=== PATIENT | female | born 1980 | race Caucasian/White ===

== ENCOUNTER 2021-07-10 09:20 | Emergency (ER) | payer MEDICAID, SELFPAY ==
[2021-07-10] VITALS (54 sets, daily range): BP systolic 111–144; BP diastolic 73–91; PULSE 81–107; RESP 13–28; TEMP 36.2–36.4; O2SAT 95–100
--- NOTE | 2021-07-10 09:15 | RT.EKG_ITS ---
APPROVED REPORT Exam: Resting ECG Reason for Exam: chest and throat burning Patient Location: E HR:92 bpm ECG Measurements Heart Rate 92 AXIS NM 157 P 55 QRSd 91 QRS 13 QT 347 T 19 QTc 430 Conclusion Sinus rhythm...normal P axis, V-rate 60- 99 sinus rhythm at 92, normal axis, no acute ischemic changes, no STEMI, nondiagnostic EKG
--- OUTSIDE RECORDS SUMMARY | 2021-07-10 09:30 | XMS_ITS | Encounter Summary ---
:1980 Author Care Team Providers Name Role Phone Faustino Castrejon Primary Care Provider [phone] Yuri Alexander General Surgeon [phone] Reason for Visit Right edema 41 y/o female with multiple complaints Assessment and Plan 1. Swelling of ankle joint mild non pitting edema, no tra marlo, no need for imaging, start wearing knee high 15 mmHg compression socks 2. Flushing occurs at time when her menses was expected to happen prior to hysterectomy, does have one ovary, normal CBC, CMP & TSH this year, no need for further testing, pt reassured by normal labs pt has mild tachycardia (103) and mildly elevated temperature, (99.6F) will monitor, may be developing a mild URI 3. Anesthesia of skin left arm felt like it was bein g squeezed for several minutes but has resolved, first episode, likely related to thoracic outlet syndrome, f/u with PT as pt is already established there. Discussion Note: None recorded.Patient educational handouts: No information available. Plan of Care Reminders Provider Appointments Hme 20 on or around Yuri Drake MD 06/10/2022 Lab None ? ? recorded. Referral None ? ? recorded. Procedures None ? ? recorded. Surgeries None ? ? recorded. Imaging None ? ? recorded. Medications Name Start Date ? ? Carafate 1 gram tablet ? Take 1 tablet 4 times a day by oral route. citalopram 20 mg tablet ? TAKE ONE TABLET BY MOUTH EVERY DAY cyclobenzaprine 10 mg tablet ? .5 to 1 tab q 8 hours prn neck spasms and pain. fluticasone propionate 50 mcg/actuation nasal spray,mcclain spension ? INSTILL ONE SPRAY IN EACH NOSTRIL DAILY ondansetron 4 mg disintegrating tablet ? DISSOLVE ONE TABLET ON TONGUE EVERY 4 TO 6 HOURS N EEDED FOR NAUSEA Protonix 40 mg tablet,delayed release ? Take 1 tablet twice a day by oral route. Saline Nasal 0.65 % spray aerosol ? 2 sprays each nostril BID & PRN Topamax 25 mg tablet ? Take 1 tablet twice a day by oral route. Medications Administered None recorded. Vitals Height Weight BMI Blood Pressure 5 ft 7 in 206 lbs 16 oz 32.4 kg/m2 120/78 mm[Hg] Results Lab Results None recorded. Allergies Code Code System Name Reaction Severity Onset 3292 RxNorm Chlorhexidine Rash Mild ? 2582 RxNorm Clindamycin ? ? ? 3361 RxNorm Dicyclomine Other ? ? Grass Pollen ? ? ? 910660 RxNorm House Dust ? ? ? 375674 RxNorm Peanut ? ? ? Tomato ? ? ? 65829 RxNorm Zoloft ? ? ? Problems Name Status Onset Date Source ? Uterine Prolapse Active 12/31/2019 ? Dysmenorrhea Active 12/31/2019 ? Allergic Rhinitis Active 07/25/2020 ? Iron Deficiency Active 10/18/2020 ? Goiter Active ? History Non-toxic Multinodular Goiter Active ? Hi story Overweight Active ? History Gastroesophageal Reflux Disease Active ? History Constipation Active ? History Midline Cystocele Active ? 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 History Muscle Weakness Active ? History Lack of Energy Active ? History Tremor Active ? History Anesthesia of Skin Active ? History Dysuria Active ? History History of Gestational Diabetes Active ? History Mellitus Inflammatory Dermatosis Active ? History Pain in Right Hip Joint Active ? History Breast Lump Active ? History Procedures Date Name Performed by ? 04/27/2020 [facility] W/t/o 250 g or Less Information not available Notes: [facility], [facility], [facility], [facility] 12/31/2018 EGD/Endoscopy Information not avai lable Notes: mild gastritis, mi ld duodenitis, sm hiatal hernia, barretts changes at [facility] 12/15/2018 Cholecystectomy, Laparoscopic (Surg) Inf ormation not available 09/10/2014 Tubal Ligation Information not avai lable ? Breast Biopsy Information not avai lable Notes: X 3 Vaccine List Vaccine Type Tdap 11/11/2012 Notes: states she had her Covid vaccine Social History Tobacco Smoking Status Never Smoker What is your level of alcohol Occasional consumption? Did the fall result in an N injury? Are you currently employed? 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 N Education [employer] Graduate Do you or have you ever used Never used smokeless tobacco smokeless tobacco? What is your code status? 0 What was the date of your 03/09/2021 most recent tobacco screening? Do you or have you ever used Never used electronic e-cigarettes or vape? cigarettes Do you have an advanced N directive? Do you feel safe at home? 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 Functional Status Unknown. Past Encounters 06/29/2021 Swelling of Ankle Joint; Flushing; Anest hesia of Skin Ciara Jaffe, GREGORIO: [address], [place] [address], Ph. History of Present Illness ? Podiatry Ankle Reported By: Patient Notes: has a spot on inner right an kle that has a patch of fluid never goes away, but does get worse thr oughout the day. denies trauma<div>
</div><div>yi s lost 2 lbs since February 2021 to June 2021
<div>
</div><div> ROS denies fevers, chest pain, palpiations</div></div> Note: 41 year old patient here to see provider for multiple concerns.<div>
</div><div> Her right ankle is swollen. Her hair is coming out in clumps. She is very sweaty. She has been on a low carb diet and is still not losing weight. She feels that she is on her feet a lot andfeels like she should have lost 10 lbs by now. She was supposed to follow up with Dr. Castrejon, but wanted to be seen today. She has needles and pins in skin of arms, feels like hot acupuncture needles.She feels like she has a rock in her throat. She does have GERD. Feels like there is a lump when she swallows. </div><div>
</div><div>multiple vague complants, burning,tingling, at time of menses, though s/p hysterectomy, has one ovary</div> Review of Systems None recorded. Physical Exam ? Brief PE Reported By: Patient General: General Appearance: healthy- appearing, well-nourished, well-developed. Level of Dis tress: NAD Musculoskeletal: Joints, Bones, and Muscles: ; bilateral ankles with mild edema at lateral maoleoli, non pittin g, FROM with no pain Psychiatric: Affect appropriate; calm, co operative
--- OUTSIDE RECORDS SUMMARY | 2021-07-10 09:30 | XMS_ITS ---
:1980 Author Care Team Providers Name Role Phone JANETH CAVAZOS General Surgeon [phone] ADAM MIRAMONTES DO Primary Care Provider [phone] Allergies Code Code System Name Reaction Severity Status Onset 2358 RxNorm Chlorhexidine Rash Mild Active ? 2582 RxNorm Clindamycin ? ? Active ? 3361 RxNorm Dicyclomine Other ? Active ? Grass Pollen ? ? Active ? 295624 RxNorm House Dust ? ? Active ? 956773 RxNorm Peanut ? ? Active ? Tomato ? ? Active ? 50441 RxNorm Zoloft ? ? Active ? Medications Name Status Start Date Stop Date ? ? amoxicillin 400 mg/5 mL oral suspension Completed 05/22/20 16 06/01/2016 10 Milliliter Milliliter: bid - twice daily amoxicillin 875 mg-potassium clavulanate 125 mg tablet Completed ? 03/09/2021 TAKE ONE TABLET BY MOUTH EVERY 12 HOURS FOR 10 DAYS azithromycin 250 mg tablet Active ? Not a vailable TAKE TWO TABLETS BY MOUTH AT ONCE ON FIRST DAY THEN TAKE ONE DAILY THEREAFTER Carafate 1 gram tablet Active ? Not avail able Take 1 tablet 4 times a day by oral route. cetirizine 1 mg/mL oral solution Active ? Not available TAKE 10ML BY MOUTH EVERY DAY cetirizine 10 mg tablet Completed ? 09/28/20 20 TAKE ONE TABLET BY MOUTH EVERY DAY citalopram 10 mg tablet Completed ? 03/09/20 21 TAKE ONE TABLET BY MOUTH EVERY DAY citalopram 20 mg tablet Active ? Not avai lable TAKE ONE TABLET BY MOUTH EVERY DAY Claritin 5 mg/5 mL oral solution Completed ? 06/02/2020 Take 10 mL every day by oral route as needed. clobetasol 0.05 % topical cream Completed 01/24/2017 01/24/2017 1 (one) Cream: two times daily cyclobenzaprine 10 mg tablet Active ? Not available .5 to 1 tab q 8 hours prn neck spasms and pain. dicyclomine 20 mg tablet Completed ? 019 Diflucan 150 mg tablet Completed 05/30/2017 7 1 (one) Tablet: qd - daily Heartburn Relief (famotidine) 10 mg tablet Active ? Not available TAKE ONE TABLET BY MOUTH AT BEDTIME famotidine 20 mg tablet Completed ? 09/28/20 20 TAKE1/2 TABLET BY MOUTH TWO TIMES A DAY Fleet Glycerin (Adult) rectal suppository Completed 201610/02/2017 1-2 Suppository: daily fluticasone propionate 50 mcg/actuation nasal spray,suspension A ctive ? Not available INSTILL ONE SPRAY IN EACH NOSTRIL DAILY hydrocodone 5 mg-acetaminophen Completed ? 0 12/03/2019 325 mg tablet hydromorphone 2 mg tablet Completed ? 2018 hydroxyzine HCl 25 mg tablet Completed 05/23/2015 1 (one) Tablet: every six hours, as needed lorazepam 0.5 mg tablet Completed ? 12/03/19 lorazepam 1 mg tablet Completed ? 06/25/2019 metoprolol succinate ER 25 mg tablet,extended release 24 hr Acti ve ? Not available TAKE ONE TABLET BY MOUTH EVERY DAY metronidazole 375 mg capsule Completed 07/03/2016 1 (one) Capsule: qid - four times a day Miralax 17 gram oral powder packet Completed 02/26/2017 10/02/2017 1 (one) Capful Capful: daily mometasone 50 mcg/actuation Completed ? 07/13 nasal spray omeprazole 20 mg capsule,delayed release Unknown ? Not available one capsule two times daily omeprazole 40 mg capsule,delayed release Completed ? 09/28/2020 TAKE ONE CAPSULE BY MOUTH EVERY MORNING ondansetron 4 mg disintegrating tablet Active ? Not available DISSOLVE ONE TABLET ON TONGUE EVERY 4 TO 6 HOURS NEEDED FOR NAUSEA oxycodone-acetaminophen 5 Completed ? 2018 mg-325 mg tablet pantoprazole 20 mg tablet,delayed release Completed ? 09/28/2020 Take 1 tablet every day by oral route. polyethylene glycol 3350 17 Completed ? 11/12 gram/dose oral powder prochlorperazine maleate 10 mg Completed ? 0 06/16/2019 tablet Protonix 40 mg tablet,delayed release Active ? Not available Take 1 tablet twice a day by oral route. ranitidine 300 mg tablet Completed ? 019 Saline Nasal 0.65 % spray aerosol Active ? Not available 2 sprays each nostril BID & PRN Simpesse 0.15 mg-30 mcg Completed ? 12/03/19 20 (84)/10 mcg(7) tablets,3 month dose pack sulfamethoxazole 800 Completed ? 12/03/2019 mg-trimethoprim 160 mg tablet terconazole 0.8 % vaginal cream Completed 05/30/2017 10/02/2017 1 (one) Application: vaginally x 3 nights Topamax 25 mg tablet Active ? Not availab le Take 1 tablet twice a day by oral route. Tri-Linyah (28) 0.18 Completed ? 12/03/2019 mg(7)/0.215 mg(7)/0.25 mg(7)-35 mcg tablet Zofran 4 mg tablet Completed ? 09/28/2020 Take 1 tablet every 6 hours by oral route as needed. Problems Name Status Onset Date Source ? Uterine Prolapse Active 12/31/2019 ? Dysmenorrhea Active 12/31/2019 ? Allergic Rhinitis Active 07/25/2020 ? Iron Deficiency Active 10/18/2020 ? Goiter Active ? History Non-toxic Multinodular Goiter Active ? Hi story Overweight Active ? History Disorder of Upper Respiratory System Unknown ? History Gastroesophageal Reflux Disease Active ? History Constipation Active ? History Midline Cystocele Active ? 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 History Arthralgia of the Ankle And/or Foot Unknown ? History Backache Unknown ? History Muscle Weakness Active ? History Lack of Energy Active ? History Tremor Active ? History Anesthesia of Skin Active ? History Dysuria Active ? History Abdominal Pain Unknown ? History History of Gestational Diabetes Active ? History Mellitus Screening Mammography Unknown ? History Inflammatory Dermatosis Active ? History SNOMED CT Concept Unknown ? History Pain in Right Hip Joint Active ? History Clinical Finding Unknown ? History Emotional State Finding Unknown ? History Breast Lump Active ? History Eve Infection of Genital Region Unknown ? History Procedure by Method Unknown ? History Procedures Date Name Performed by ? 04/27/2020 Tlh W/t/o 250 g or Less Information not available Notes: TLH, LSO, RS, USVVS 12/31/2018 EGD/Endoscopy Information not avai lable Notes: mild gastritis, mi ld duodenitis, sm hiatal hernia, barretts changes at [facility] 12/15/2018 Cholecystectomy, Laparoscopic Informatio n not available (Surg) 09/10/2014 Tubal Ligation Information not avai lable ? Breast Biopsy Information not avai lable Notes: X 3 11/24/2018 US, Abdomen, Limited [facility] (Internal) [address] [place] [address] (Work Place) 11/26/2018 NM, Hepatobiliary Scan, W/ CCK [facility] Rad[facility] (Internal) [address] [place] [address] (Work Place) 12/22/2018 US, Abdomen, Limited [facility] (Internal) [address] [place] [address] (Work Place) 04/30/2019 MAMMO, Diagnostic, Tomosynthesis, [facility] Radiology (Internal) Unilateral [address] [place] [address] (Work Place) 04/30/2019 US, Breast, Unilateral, Limited [facility] Radiology (Internal) [address] [place] [address] (Work Place) 05/01/2019 MAMMO, Diagnostic, Tomosynthesis, [facility]iology (Internal) Bilateral [address] [place] [address] (Work Place) 06/16/2019 MRI, Brain, W/o Contrast [facility] Rad[facility] (Internal) [address] [place] [address] (Work Place) 06/17/2019 MRI, Brain, W/wo Contrast [facility] (Internal) [address] [place] [address] (Work Place) 08/10/2019 US, Pelvis, Transabdominal + [facility] (Internal) Transvaginal [address] [place] [address] (Work Place) 06/02/2020 MAMMO, Screening, Tomosynthesis, [facility] (Internal) Bilateral [address] [place] [address] (Work Place) 06/02/2020 XR, Shoulder, 2 or More View [facility] (Internal) [address] [place] [address] (Work Place) 06/15/2020 XR, Shoulder, 2 or More View [facility] (Internal) [address] [place], [place] [id number] (Work Place) 07/28/2020 US, Breast [facility] (Internal) [address] [place] [address] (Work Place) 11/15/2020 Holter Monitor [facility] Cardio pulmonary [address] [place] [address] (Work Place) Results Lab Results Date Name Specimen Result Interpretation Description Value Range Status Address ? 03/23/2021 CBC W/ BLD ? Wbc 7.4 10*3/uL 5.0-10.0 Final [place] Auto Diff 10*3/uL [facility] L ab (Internal) : [address] t ? ? BLD ? Rbc 4.78 10*6/uL 4.10-5.30 Final N orth 10*6/uL [facility] L ab (Internal) : [address] t ? ? BLD ? Hgb 13.1 g/dL 12.0-16.0 Final Nort h g/dL [facility] L ab (Internal) : [address] t ? ? BLD ? Hct 41.4 % 37.0-47.0 % Final [facility] L ab (Internal) : [address] t ? ? BLD ? Mcv 86.6 fL 80.0-96.0 Final [facility] L ab (Internal) : [address] t ? ? BLD ? Mch 27.4 pg 26.0-32.0 Final [facility] L ab (Internal) : [address] t ? ? BLD ? Mchc 31.6 g/dL 31.0-35.0 Final Nort h g/dL [facility] L ab (Internal) : [address] t ? ? BLD ? Rdw 14.1 % 11.5-14.5 % Final [facility] L ab (Internal) : [address] ? ? BLD ? Plt 265 10*3/uL 130-450 Final Nort h 10*3/uL [facility] L ab (Internal) : [address] ? ? BLD ? Anc 4.78 10*3/uL ? Final Nort [facility] L ab (Internal) : [address] [place] ? ? BLD ? Nlr 2.63 0.00-3.20 Final [facility] L ab (Internal) : [address] , [place] ? ? BLD ? Neutro 64.7 % 40.0-75.0 % Final Nort [facility] L ab (Internal) : [address] ? ? BLD ? Lymph 24.6 % 20.0-50.0 % Final [facility] L ab (Internal) : [address] t ? ? BLD ? [place] 7.3 % 2.0-10.0 % Final [facility] L ab (Internal) : [address] ? ? BLD ? Eos 2.3 % 1.0-6.0 % Final [facility] L ab (Internal) : [address] ? ? BLD ? Baso 0.8 % 0.0-1.0 % Final [facility] L ab (Internal) : [address] t ? ? BLD ? Ig 0.3 % 0.0-0.9 % Final [facility] L ab (Internal) : [address] t 03/23/2021 BMP, S ? g/r 96 mg/dL 74-106 Final Nort h Serum or mg/dL [facility] L [facility] (Internal) : [address] t ? ? S ? Bun 15 mg/dL 7-17 mg/dL Final Nort h [facility] L ab (Internal) : [address] ? ? S ? Crea 0.60 mg/dL 0.52-1.04 Final Nor th mg/dL [facility] L ab (Internal) : [address] ? ? S ? Ca 9.6 mg/dL 8.4-10.2 Final [place] mg/dL [facility] L ab (Internal) : [address] t ? ? S ? Na 141 mmol/L 137-145 Final [place] mmol/L [facility] L ab (Internal) : [address] t ? ? S ? K 3.8 mmol/L 3.5-5.1 Final [place] mmol/L [facility] L ab (Internal) : [address] t ? ? S ? Cl 105 mmol/L 98-107 Final [place] mmol/L [facility] L ab (Internal) : [address] t ? ? S ? Tco2 24.0 mmol/L 22.0-30.0 Final No rth mmol/L [facility] L ab (Internal) : [address] 03/23/2021 Troponin S ? Trop <0.06 NG/mL 0.00-0.06 Fin al [place] I, Serum NG/mL [facility] or [facility] Lab (Internal) : [address] 11/15/2020 CBC W/ BLD ? Wbc 6.2 10*3/uL 5.0-10.0 Final [place] Auto Diff 10*3/uL [facility] L ab (Internal) : [address] ? ? BLD ? Rbc 4.57 10*6/uL 4.10-5.30 Final N orth 10*6/uL [facility] L ab (Internal) : [address] ? ? BLD Low Hgb 11.9 g/dL 12.0-16.0 Final Nort h g/dL [facility] L ab (Internal) : [address] ? ? BLD ? Hct 37.3 % 37.0-47.0 % Final [facility] L ab (Internal) : [address] ? ? BLD ? Mcv 81.6 fL 80.0-96.0 Final [facility] L ab (Internal) : [address] ? ? BLD ? Mch 26.0 pg 26.0-32.0 Final [place] pg [facility] L ab (Internal) : [address] t ? ? BLD ? Mchc 31.9 g/dL 31.0-35.0 Final Nort h g/dL [facility] L ab (Internal) : [address] ? ? BLD High Rdw 16.2 % 11.5-14.5 % Final [facility] L ab (Internal) : [address] ? ? BLD ? Plt 271 10*3/uL 130-450 Final Nort h 10*3/uL [facility] L ab (Internal) : [address] ? ? BLD ? Anc 4.43 10*3/uL ? Final [facility] L ab (Internal) : [address] ? ? BLD High Nlr 3.52 0.00-3.20 Final [facility] L ab (Internal) : [address] ? ? BLD ? Neutro 71.2 % 40.0-75.0 % Final [facility] L ab (Internal) : [address] ? ? BLD ? Lymph 20.3 % 20.0-50.0 % Final [facility] L ab (Internal) : [address] ? ? BLD ? [place] 6.9 % 2.0-10.0 % Final [facility] L ab (Internal) : [address] ? ? BLD Low Eos 0.8 % 1.0-6.0 % Final [facility] L ab (Internal) : [address] ? ? BLD ? Baso 0.5 % 0.0-1.0 % Final [facility] L ab (Internal) : [address] ? ? BLD ? Ig 0.3 % 0.0-0.9 % Final [facility] L ab (Internal) : [address] 11/15/2020 CMP, S High g/r 126 mg/dL 74-106 Final Nor th Serum or mg/dL [facility] L ab (Internal) : [address] ? ? S ? Bun 15 mg/dL 7-17 mg/dL [facility] L ab (Internal) : [address] ? ? S ? Crea 0.60 mg/dL 0.52-1.04 Final Nor th mg/dL [facility] L ab (Internal) : [address] t ? ? S ? Ca 8.9 mg/dL 8.4-10.2 Final [place] mg/dL [facility] L ab (Internal) : [address] t ? ? S ? Na 139 mmol/L 137-145 Final [place] mmol/L [facility] L ab (Internal) : [address] t ? ? S ? K 3.9 mmol/L 3.5-5.1 Final [place] mmol/L [facility] L ab (Internal) : [address] t ? ? S ? Cl 107 mmol/L 98-107 Final [place] mmol/L [facility] L ab (Internal) : [address] t ? ? S ? Tco2 24.0 mmol/L 22.0-30.0 Final No rth mmol/L [facility] (Internal) : [address] t ? ? S ? Tp 7.4 g/dL 6.3-8.2 Final [place] g/dL [facility] L ab (Internal) : [address] t ? ? S ? Alb 4.0 g/dL 3.5-5.0 Final [place] g/dL [facility] L ab (Internal) : [address] t ? ? S ? Tbil 0.2 mg/dL 0.2-1.3 Final [place] mg/dL [facility] L ab (Internal) : [address] t ? ? S ? Alp 115 U/L 50-136 U/L Final [facility] L ab (Internal) : [address] ? ? S ? Alt 16 U/L 9-52 U/L Final [place] (Sgpt) [facility] L ab (Internal) : [address] ? ? S ? Ast 24 U/L 14-36 U/L Final [place] (Sgot) [facility] L ab (Internal) : [address] t 11/15/2020 Troponin S ? Trop <0.06 NG/mL 0.00-0.06 Fin al [place] I, Serum NG/mL [facility] or [facility]osp[facility] Lab (Internal) : [address] 11/15/2020 TSH, S ? Tsh 2.19 0.47-4.68 Final [facility] Serum or u[IU]/mL u[IU]/mL Coun [facility] Hospital L ab (Internal) : [address] [place] [place] 11/15/2020 RBC BLD ? Aniso small ? Final [facility] y, Blood Hospital Lab (Internal) : [address] ? ? BLD ? Oval occasional ? Final [facility] L ab (Internal) : [address] 11/15/2020 EKG Done ? No ? ? ? [facility] ([facility] l): . [address] 10/18/2020 CBC W/ BLD ? Wbc 8.5 10*3/uL 5.0-10.0 Final [place] Auto Diff 10*3/uL [facility] Hospital L ab (Internal) : [address] ? ? BLD ? Rbc 4.33 10*6/uL 4.10-5.30 Final N orth 10*6/uL [facility] L ab (Internal) : [address] t ? ? BLD Low Hgb 10.9 g/dL 12.0-16.0 Final Nort h g/dL [facility] L ab (Internal) : [address] ? ? BLD Low Hct 36.0 % 37.0-47.0 % Final [facility] L ab (Internal) : [address] ? ? BLD ? Mcv 83.1 fL 80.0-96.0 Final [facility] L ab (Internal) : [address] t ? ? BLD Low Mch 25.2 pg 26.0-32.0 Final [facility] L ab (Internal) : [address] ? ? BLD Low Mchc 30.3 g/dL 31.0-35.0 Final Nort h g/dL [facility] L ab (Internal) : [address] ? ? BLD High Rdw 18.6 % 11.5-14.5 % Final [facility] (Internal) : [address] [place] ? ? BLD ? Plt 277 10*3/uL 130-450 Final Nort 10*3/uL [facility] L ab (Internal) : [address] [place] ? ? BLD ? Anc 5.71 10*3/uL ? Final [facility] L ab (Internal) : [address] [place] ? ? BLD ? Nlr 2.99 0.00-3.20 Final [facility] L ab (Internal) : [address] [place] ? ? BLD ? Neutro 67.3 % 40.0-75.0 % Final [facility] L ab (Internal) : [address] [place] ? ? BLD ? Lymph 22.5 % 20.0-50.0 % Final [facility] L ab (Internal) : [address] [place] ? ? BLD ? [place] 7.4 % 2.0-10.0 % Final [facility] L ab (Internal) : [address] [place] ? ? BLD ? Eos 1.9 % 1.0-6.0 % Final [facility] L ab (Internal) : [address] [place] ? ? BLD ? Baso 0.5 % 0.0-1.0 % Final [facility] L ab (Internal) : [address] [place] ? ? BLD ? Ig 0.4 % 0.0-0.9 % Final [facility] L ab (Internal) : [address], [place] 10/18/2020 RBC BLD ? Aniso small ? [facility] Lab (Internal) : [address] [place] ? ? BLD ? Hypo rare ? Final [facility] Hospital L ab (Internal) : [address], [place] ? ? BLD ? Micro rare ? Final [facility] L ab (Internal) : [address], [place] ? ? BLD ? Oval occasional ? Final [facility] L ab (Internal) : [address] [place] 09/30/2020 SARS CoV SWAB ? Sars-co nasopharynx ? Soheila ramu [place] 2 RNA v-2 Country (COVID-19 Specimen Hospi yasemin Lab ), QL, Source (Internal) : chef manager-PCR, [address] , [address] Specimen ? ? SWAB ? Patient unknown ? Final [facility] L ab (Internal) : [address] [place] ? ? SWAB ? Patient unknown ? Final [facility] Hospital L ab (Internal) : [address] [place] ? ? SWAB ? Sars-co undetected undetected Final [place] v-2 RNA [facility] L ab (Internal) : [address] ? ? SWAB ? Method see below ? Final [facility] L ab (Internal) : [address] 06/16/2020 CBC W/ BLD ? Wbc 5.9 10*3/uL 5.0-10.0 Final [place] Auto Diff 10*3/uL [facility] Hospital L ab (Internal) : [address] ? ? BLD ? Rbc 4.63 10*6/uL 4.10-5.30 Final N orth 10*6/uL [facility] L ab (Internal) : [address] ? ? BLD Low Hgb 10.5 g/dL 12.0-16.0 Final Nort h g/dL [facility] L ab (Internal) : [address] ? ? BLD Low Hct 34.2 % 37.0-47.0 % Final [facility] ab (Internal) : [address] [place] ? ? BLD Low Mcv 73.9 fL 80.0-96.0 Final [facility] L ab (Internal) : [address] ? ? BLD Low Mch 22.7 pg 26.0-32.0 Final [facility] L ab (Internal) : [address] ? ? BLD Low Mchc 30.7 g/dL 31.0-35.0 Final Nort h g/dL [facility] L ab (Internal) : [address] ? ? BLD High Rdw 16.4 % 11.5-14.5 % Final [facility] ab (Internal) : [address] ? ? BLD ? Plt 348 10*3/uL 130-450 Final Nort h 10*3/uL [facility] L ab (Internal) : [address] ? ? BLD ? Anc 4.48 10*3/uL ? Final [facility] L ab (Internal) : [address] ? ? BLD High Nlr 4.31 0.00-3.20 Final [facility] L ab (Internal) : [address] ? ? BLD High Neutro 75.6 % 40.0-75.0 % Final [facility] L ab (Internal) : [address] ? ? BLD Low Lymph 17.5 % 20.0-50.0 % Final [facility] L ab (Internal) : [address] ? ? BLD ? [place] 5.9 % 2.0-10.0 % Final [facility] L ab (Internal) : [address] ? ? BLD Low Eos 0.2 % 1.0-6.0 % Final [facility] L ab (Internal) : [address] ? ? BLD ? Baso 0.5 % 0.0-1.0 % Final [facility] L ab (Internal) : [address] ? ? BLD ? Ig 0.3 % 0.0-0.9 % Final [facility] L ab (Internal) : [address] 06/16/2020 CMP, S ? g/r 96 mg/dL 74-106 Final Nort h Serum or mg/dL [facility] L ab (Internal) : [address] ? ? S ? Bun 11 mg/dL 7-17 mg/dL Final Nort [facility] Hospital L ab (Internal) : [address] ? ? S ? Crea 0.70 mg/dL 0.52-1.04 Final Nor th mg/dL [facility] L ab (Internal) : [address] ? ? S ? Ca 9.5 mg/dL 8.4-10.2 Final [place] mg/dL [facility] L ab (Internal) : [address] ? ? S ? Na 138 mmol/L 137-145 Final [place] mmol/L [facility] L ab (Internal) : [address] ? ? S ? K 3.7 mmol/L 3.5-5.1 Final [place] mmol/L [facility] L ab (Internal) : [address], [place] ? ? S ? Cl 104 mmol/L 98-107 Final [place] mmol/L [facility] L ab (Internal) : [address] ? ? S Low Tco2 21.0 mmol/L 22.0-30.0 Final No rth mmol/L [facility] L ab (Internal) : [address] ? ? S ? Tp 8.0 g/dL 6.3-8.2 Final [place] g/dL [facility] L ab (Internal) : [address] ? ? S ? Alb 4.3 g/dL 3.5-5.0 Final [place] g/dL [facility] L ab (Internal) : [address] ? ? S ? Tbil 0.5 mg/dL 0.2-1.3 Final [place] mg/dL [facility] L ab (Internal) : [address] ? ? S High Alp 151 U/L 50-136 U/L Final [facility] Hospital L ab (Internal) : [address] ? ? S ? Alt 16 U/L 9-52 U/L Final [place] (Sgpt) [facility] L ab (Internal) : [address] ? ? S ? Ast 25 U/L 14-36 U/L Final [place] (Sgot) [facility] L ab (Internal) : [address] 06/16/2020 RBC BLD ? Aniso small ? [facility] y, Blood Hospital Lab (Internal) : [address] ? ? BLD ? Hypo occasional ? Final [facility] Hospital L ab (Internal) : [address] ? ? BLD ? Micro small ? Final [facility] Hospital L ab (Internal) : [address] ? ? BLD ? Oval occasional ? Final [facility] L ab (Internal) : [address] t 06/16/2020 T4, Free, S ? Ft4 1.64 NG/dL 0.78-2.19 Fin al [place] Serum NG/dL [facility] L [facility] (Internal) : [address] 06/16/2020 TSH, S ? Tsh 0.50 0.47-4.68 Final [place] th Serum or u[IU]/mL u[IU]/mL [facility] L ab (Internal) : [address] 06/16/2020 T3, Free, S ? T3, 3.7 pg/mL 2.8-5.3 Final [place] Serum or Free pg/mL [facility] L ab (Internal) : [address] [facility] 06/16/2020 Lh S ? Lh 3.9 mIU/mL see note Final [place] (Luteiniz mIU/mL [facility] L ab Hormone), (Lobster Man al): Serum [address] [facility] 06/16/2020 FSH S ? Fsh 7.8 mIU/mL see note Final [place] (Follicle mIU/mL Country -stimulat Hospita l Lab ing (Internal) : Hormone), [address] [facility] 06/14/2020 EKG Done ? No ? ? ? Nort h by ED observat [facility] Hospital L ab recorded (Interna l): . [address] 06/13/2020 SARS CoV SWAB ? Covid-1 negative negative Final [place] 2 RNA 9 Result [facility] (COVID-19 Hospita l Lab ), , (Internal) : chef manager-PCR, [address] [facility] ry Specimen ? ? SWAB ? Perform the broad ? Final [facility] Lab institute [facility] Hospital L ab (Internal) : [address] 05/21/2020 CBC W/ BLD ? Wbc 5.6 10*3/uL 5.0-10.0 Final [place] Auto Diff 10*3/uL [facility] L ab (Internal) : [address] ? ? BLD Low Rbc 3.97 10*6/uL 4.10-5.30 Final N orth 10*6/uL [facility] Hospital L ab (Internal) : [address] t ? ? BLD Low Hgb 9.3 g/dL 12.0-16.0 Final [place] g/dL [facility] L [facility] (Internal) : [address] ? ? BLD Low Hct 29.9 % 37.0-47.0 % Final [facility] ab (Internal) : [address] ? ? BLD Low Mcv 75.3 fL 80.0-96.0 Final [facility] ab (Internal) : [address] ? ? BLD Low Mch 23.4 pg 26.0-32.0 Final [facility] L ab (Internal) : [address] ? ? BLD ? Mchc 31.1 g/dL 31.0-35.0 Final [facility] g/dL [facility] L ab (Internal) : [address] ? ? BLD High Rdw 15.3 % 11.5-14.5 % Final [facility] ab (Internal) : [address] ? ? BLD ? Plt 329 10*3/uL 130-450 [facility] ab (Internal) : [address] ? ? BLD ? Anc 3.82 10*3/uL ? Final [facility] ab (Internal) : [address] ? ? BLD ? Nlr 3.03 0.00-3.20 Final [facility] ab (Internal) : [address] ? ? BLD ? Neutro 68.4 % 40.0-75.0 % Final [facility] ab (Internal) : [address] ? ? BLD ? Lymph 22.5 % 20.0-50.0 % Final [facility] ab (Internal) : [address] ? ? BLD ? [place] 6.6 % 2.0-10.0 % Final [facility] ab (Internal) : [address] ? ? BLD ? Eos 1.8 % 1.0-6.0 % Final [facility] ab (Internal) : [address] ? ? BLD ? Baso 0.5 % 0.0-1.0 % Final [facility] ab (Internal) : [address] , [place] ? ? BLD ? Ig 0.2 % 0.0-0.9 % Final [facility] Hospital L ab (Internal) : [address] 05/21/2020 BMP, S ? g/r 100 mg/dL 74-106 Final [facility] Serum or mg/dL [facility] Plasma Hospital L ab (Internal) : [address] t ? ? S ? Bun 13 mg/dL 7-17 mg/dL Final Nort h [facility] Hospital L ab (Internal) : [address] t ? ? S ? Crea 0.70 mg/dL 0.52-1.04 Final Nor th mg/dL [facility] Hospital L ab (Internal) : [address] t ? ? S ? Ca 9.3 mg/dL 8.4-10.2 Final [place] mg/dL [facility] L ab (Internal) : [address] t ? ? S ? Na 137 mmol/L 137-145 Final [place] mmol/L [facility] L ab (Internal) : [address] t ? ? S ? K 3.7 mmol/L 3.5-5.1 Final [place] mmol/L [facility] L ab (Internal) : [address] t ? ? S ? Cl 104 mmol/L 98-107 Final [place] mmol/L [facility] L ab (Internal) : [address] t ? ? S ? Tco2 25.0 mmol/L 22.0-30.0 Final No rth mmol/L [facility] L ab (Internal) : [address] 05/21/2020 Lipase, S ? Lip 116 U/L 23-300 U/L Final [facility] or [facility] Plasma Hospital L ab (Internal) : [address] 05/21/2020 RBC BLD ? Aniso small ? [facility] Lab (Internal) : [address] t ? ? BLD ? Hypo small ? Final [facility] L ab (Internal) : [address] t ? ? BLD ? Micro small ? Final [facility] L ab (Internal) : [address] t ? ? BLD ? Poik small [hpf] ? Final [facility] Hospital L ab (Internal) : [address] t 05/21/2020 Troponin S ? Trop <0.06 NG/mL 0.00-0.06 Fin al [place] I, Serum NG/mL Country or Plasma Hospita l Lab (Internal) : [address] t 2020 Urinalysi ? Color Yellow ? ? P_n c Primary s, Care Dipstick, [place]/ [place] Reflex ns: [address], [place] ? ? ? Appeara Clear ? ? P_nc Yamileth make Care [place]/Orl ea ns: [address], [place] ? ? ? Glucose Normal ? ? P_nc Yamileth thacker Care [place]/Orl ea ns: [address], [place] ? ? ? Bilirub Negative ? ? P_nc P rimary in Care [place]l ea ns: [address], [place] ? ? ? Ketones Negative ? ? P_nc P rimary Care [place]/Orl ea ns: [address], [place] ? ? ? Specifi 1.015 ? ? P_nc Yamileth kedar burden Care Fifty Six [place]/Or keith ns: [address], [place] ? ? ? Blood Trace ? ? P_nc Prima ry Care [place]/Orl ea ns: [address], [place] ? ? ? Ph 6.0 ? ? P_nc Prima ry Care [place]/Orl ea ns: [address], [place] ? ? ? Protein Negative ? ? P_nc P rimary Care [place]/Orl ea ns: [address], [place] ? ? ? Urobili 1 ? ? P_nc Yamileth kedar leo Care [place]/Orl ea ns: [address], [place] ? ? ? Nitrite negative ? ? P_nc P rimary Care [place]/Orl ea ns: [address], [place] ? ? ? Leukocy Trace ? ? P_nc Yamileth kedar balderas Care Esterase [place]/O rlea ns: [address], [place] 05/04/2020 H Pylori MISC ? H. negative negative Final [place] Urea Pylori C [facility] L ab Test, Co2 Breath (Lobster Man al): Infrared Test [address] 04/30/2020 CBC W/ BLD ? Wbc 7.3 10*3/uL 5.0-10.0 Final [place] Auto Diff 10*3/uL [facility] L ab (Internal) : [address] ? ? BLD ? Rbc 4.23 10*6/uL 4.10-5.30 Final N orth 10*6/uL [facility] Hospital L ab (Internal) : [address] ? ? BLD Low Hgb 10.1 g/dL 12.0-16.0 Final Nort h g/dL [facility] L ab (Internal) : [address] ? ? BLD Low Hct 32.7 % 37.0-47.0 % Final [facility] L ab (Internal) : [address] ? ? BLD Low Mcv 77.3 fL 80.0-96.0 Final [facility] L ab (Internal) : [address] ? ? BLD Low Mch 23.9 pg 26.0-32.0 Final [facility] L ab (Internal) : [address] ? ? BLD Low Mchc 30.9 g/dL 31.0-35.0 Final Nort h g/dL [facility] L ab (Internal) : [address] ? ? BLD High Rdw 16.0 % 11.5-14.5 % Final [facility] L ab (Internal) : [address] ? ? BLD ? Plt 281 10*3/uL 130-450 Final Nort h 10*3/uL [facility] L ab (Internal) : [address] ? ? BLD ? Anc 5.10 10*3/uL ? Final Nort [facility] L ab (Internal) : [address] ? ? BLD High Nlr 3.72 0.00-3.20 Final [facility] L ab (Internal) : [address] ? ? BLD ? Neutro 69.8 % 40.0-75.0 % Final [facility] L ab (Internal) : [address] ? ? BLD Low Lymph 18.8 % 20.0-50.0 % Final [facility] Hospital L ab (Internal) : [address] t ? ? BLD ? [place] 8.5 % 2.0-10.0 % Final [facility] Hospital L ab (Internal) : [address] t ? ? BLD ? Eos 1.8 % 1.0-6.0 % Final [facility] Hospital L ab (Internal) : [address] t ? ? BLD ? Baso 0.7 % 0.0-1.0 % Final [facility] Hospital L ab (Internal) : [address] t ? ? BLD ? Ig 0.4 % 0.0-0.9 % Final [facility] Hospital L ab (Internal) : [address] t 04/30/2020 Lactic S ? La 1.0 mmol/L 0.7-2.1 Final N orth Acid, mmol/L [facility] Blood Hospital L ab (Internal) : [address] t 04/30/2020 CMP, S ? g/r 97 mg/dL 74-106 Final Nort h Serum or mg/dL [facility] Plasma Hospital L ab (Internal) : [address] t ? ? S ? Bun 12 mg/dL 7-17 mg/dL Final Nort h [facility] Hospital L ab (Internal) : [address] t ? ? S ? Crea 0.70 mg/dL 0.52-1.04 Final Nor th mg/dL [facility] Hospital L ab (Internal) : [address] t ? ? S ? Ca 8.8 mg/dL 8.4-10.2 Final [place] mg/dL [facility] Hospital L ab (Internal) : [address] t ? ? S ? Na 139 mmol/L 137-145 Final [place] mmol/L [facility] Hospital L ab (Internal) : [address] t ? ? S ? K 3.8 mmol/L 3.5-5.1 Final [place] mmol/L [facility] Hospital L ab (Internal) : [address] t ? ? S ? Cl 103 mmol/L 98-107 Final [place] mmol/L [facility] Hospital L ab (Internal) : [address] t ? ? S ? Tco2 27.0 mmol/L 22.0-30.0 Final No rth mmol/L [facility] Hospital L ab (Internal) : [address] t ? ? S ? Tp 7.2 g/dL 6.3-8.2 Final [place] g/dL [facility] Hospital L ab (Internal) : [address] t ? ? S ? Alb 3.9 g/dL 3.5-5.0 Final [place] g/dL [facility] Hospital L ab (Internal) : [address] t ? ? S ? Tbil 0.3 mg/dL 0.2-1.3 Final [place] mg/dL [facility] Hospital L ab (Internal) : [address] t ? ? S ? Alp 126 U/L 50-136 U/L Final [facility] Hospital L ab (Internal) : [address] t ? ? S ? Alt 15 U/L 9-52 U/L Final [place] (pt) [facility] Hospital L ab (Internal) : [address] t ? ? S ? Ast 19 U/L 14-36 U/L Final [place] (Sgot) [facility] Hospital L ab (Internal) : [address] 04/30/2020 RBC BLD ? Aniso small ? Final [place] Morpholog [facility] y, Blood Hospital Lab (Internal) : [address] t ? ? BLD ? Micro small ? Final [facility] Hospital L ab (Internal) : [address] t ? ? BLD ? Polychr rare ? Final [facility] Hospital L ab (Internal) : [address] 04/27/2020 CBC W/ BLD ? Wbc 5.3 10*3/uL 5.0-10.0 Final [place] Auto Diff 10*3/uL [facility] Hospital L ab (Internal) : [address] t ? ? BLD ? Rbc 4.34 10*6/uL 4.10-5.30 Final N orth 10*6/uL [facility] Hospital L ab (Internal) : [address] t ? ? BLD Low Hgb 10.3 g/dL 12.0-16.0 Final Nort h g/dL [facility] Hospital L ab (Internal) : [address], [place] ? ? BLD Low Hct 33.6 % 37.0-47.0 % Final [facility] ab (Internal) : [address] ? ? BLD Low Mcv 77.4 fL 80.0-96.0 Final [facility] ab (Internal) : [address] ? ? BLD Low Mch 23.7 pg 26.0-32.0 Final [facility] ab (Internal) : [address] ? ? BLD Low Mchc 30.7 g/dL 31.0-35.0 Final [facility] g/dL [facility] ab (Internal) : [address] ? ? BLD High Rdw 15.8 % 11.5-14.5 % Final [facility] ab (Internal) : [address] ? ? BLD ? Plt 304 10*3/uL 130-450 Final Nort h 10*3/uL [facility] ab (Internal) : [address] ? ? BLD ? Anc 3.42 10*3/uL ? Final [facility] ab (Internal) : [address] ? ? BLD ? Nlr 2.65 0.00-3.20 Final [facility] ab (Internal) : [address] ? ? BLD ? Neutro 64.8 % 40.0-75.0 % Final [facility] ab (Internal) : [address] ? ? BLD ? Lymph 24.4 % 20.0-50.0 % Final [facility] ab (Internal) : [address] ? ? BLD ? [place] 7.0 % 2.0-10.0 % Final [facility] ab (Internal) : [address] ? ? BLD ? Eos 2.8 % 1.0-6.0 % Final [facility] ab (Internal) : [address] ? ? BLD ? Baso 0.8 % 0.0-1.0 % Final [facility] ab (Internal) : [address] ? ? BLD ? Ig 0.2 % 0.0-0.9 % Final [facility] Hospital L ab (Internal) : [address] t 04/27/2020 RBC BLD ? Aniso occasional ? Final No rth Morpholog [place] y, Blood Hospital Lab (Internal) : [address] t ? ? BLD ? Micro small ? Final [facility] Hospital L ab (Internal) : [address] t ? ? BLD ? Polychr occasional ? [facility] [address] t ? ? BLD ? Oval occasional ? Final [facility] Hospital L ab (Internal) : [address] t 04/27/2020 Type + BLD ? Abo Ab ? Final [facility] Blood Hospital L ab (Internal) : [address] t ? ? BLD ? Rh negative ? Final [facility] Hospital L ab (Internal) : [address] t ? ? BLD ? Ab Scrn negative negative Final [facility] Hospital L ab (Internal) : [address] t 04/27/2020 Pathology TISS ? Report (see below) ? Soheila ramu [facility] Hospital L ab (Internal) : [address] t 04/07/2020 Send Out, MISC ? S/O enviromental ? Soheila ramu [facility] Hospital L ab (Internal) : [address] t ? ? MISC ? Status sent to ? Final [facility] Hospital L ab (Internal) : [address] t 04/07/2020 Food S ? Food 0.68 kU/L ? Final Nor [facility] Hospital L ab Serum (Internal) : [address] t 04/07/2020 [facility] ? [id number] see below ? Final No rth Refrigera 04/08/2020 Cou ntry te 08:50 pm Hospital Lab (Internal) : [address] t 12/21/2019 CBC W/ BLD ? Wbc 7.7 10*3/uL 5.0-10.0 [facility] Auto Diff 10*3/uL [facility] Hospital L ab (Internal) : [address] t ? ? BLD ? Rbc 5.14 10*6/uL 4.10-5.30 Final N orth 10*6/uL [facility] Hospital L ab (Internal) : [address] ? ? BLD ? Hgb 12.5 g/dL 12.0-16.0 Final Nort h g/dL [facility] L ab (Internal) : [address] ? ? BLD ? Hct 39.7 % 37.0-47.0 % Final [facility] L ab (Internal) : [address] ? ? BLD Low Mcv 77.2 fL 80.0-96.0 Final [facility] L ab (Internal) : [address] ? ? BLD Low Mch 24.3 pg 26.0-32.0 Final [facility] L ab (Internal) : [address] ? ? BLD ? Mchc 31.5 g/dL 31.0-35.0 Final Nort h g/dL [facility] Hospital L ab (Internal) : [address] ? ? BLD High Rdw 15.5 % 11.5-14.5 % Final [facility] L ab (Internal) : [address] ? ? BLD ? Plt 257 10*3/uL 130-450 Final Nort h 10*3/uL [facility] Hospital L ab (Internal) : [address] ? ? BLD ? Anc 5.43 10*3/uL ? Final Nort [facility] L ab (Internal) : [address] ? ? BLD ? Neutro 70.6 % 40.0-75.0 % [facility] Hospital L ab (Internal) : [address] ? ? BLD ? Lymph 20.5 % 20.0-50.0 % Final [facility] ab (Internal) : [address] ? ? BLD ? [place] 7.1 % 2.0-10.0 % Final [facility] L ab (Internal) : [address] ? ? BLD Low Eos 0.9 % 1.0-6.0 % Final [facility] (Internal) : [address] t ? ? BLD ? Baso 0.6 % 0.0-1.0 % Final [facility] Hospital L ab (Internal) : [address] t ? ? BLD ? Ig 0.3 % 0.0-0.9 % Final [facility] Hospital L ab (Internal) : [address] 12/21/2019 BMP, S ? g/r 99 mg/dL 74-106 Final Nort h Serum or mg/dL [facility] Plasma Hospital L ab (Internal) : [address] t ? ? S ? Bun 17 mg/dL 7-17 mg/dL Final Nort h [facility] Hospital L ab (Internal) : [address] t ? ? S ? Crea 0.60 mg/dL 0.52-1.04 Final Nor th mg/dL [facility] Hospital L ab (Internal) : [address] t ? ? S ? Ca 9.5 mg/dL 8.4-10.2 Final [place] mg/dL [facility] Hospital L ab (Internal) : [address] t ? ? S ? Na 138 mmol/L 137-145 Final [place] mmol/L [facility] Hospital L ab (Internal) : [address] t ? ? S ? K 3.9 mmol/L 3.5-5.1 Final [place] mmol/L [facility] Hospital L ab (Internal) : [address] t ? ? S ? Cl 104 mmol/L 98-107 Final [place] mmol/L [facility] Hospital L ab (Internal) : [address] t ? ? S Low Tco2 21.0 mmol/L 22.0-30.0 Final No rth mmol/L [facility] Hospital L ab (Internal) : [address] 12/21/2019 CRP, High S High Rcrp 0.42 mg/dL 0.10-0.30 Fin al [place] Sensitivi mg/dL [place] ty, Serum Hospita l Lab or Plasma ([place] Man al): [address] 12/21/2019 RBC BLD ? Aniso occasional ? Final No rth Morpholog [place] y, Blood Hospital Lab (Internal) : [address] t ? ? BLD ? Micro small ? Final [facility] Hospital L ab (Internal) : [address] t ? ? BLD ? Oval occasional ? Final [facility] Hospital L ab (Internal) : [address] 10/21/2019 Culture UR - Final microbiology ? Final [place] ([place] results Country Count), Hospital Lab Urine (Internal) : [address] 08/10/2019 Pap Test, MISC - Hpv see report ? Final [place] Thinprep, [facility] Cervical Hospital Lab (Internal) : [address] t ? ? MISC - Pap see report ? Final [facility] Hospital L ab (Internal) : [address] t ? ? MISC - Report (added) ? Corrected [facility] Hospital L ab (Internal) : [address] 07/11/2019 CBC W/ BLD - Wbc 7.4 10*3/uL 5.0-10.0 Final [place] Auto Diff 10*3/uL [facility] Hospital L ab (Internal) : [address] t ? ? BLD - Rbc 4.55 10*6/uL 4.10-5.30 Final N orth 10*6/uL [facility] Hospital L ab (Internal) : [address] t ? ? BLD Low Hgb 11.6 g/dL 12.0-16.0 Final Nort h g/dL [facility] L ab (Internal) : [address] t ? ? BLD Low Hct 35.8 % 37.0-47.0 % Final [facility] Hospital L ab (Internal) : [address] t ? ? BLD Low Mcv 78.7 fL 80.0-96.0 Final [facility] Hospital L ab (Internal) : [address] t ? ? BLD Low Mch 25.5 pg 26.0-32.0 Final [facility] Hospital L ab (Internal) : [address] t ? ? BLD - Mchc 32.4 g/dL 31.0-35.0 Final Nort h g/dL [facility] Hospital L ab (Internal) : [address] t ? ? BLD High Rdw 15.1 % 11.5-14.5 % Final [facility] L ab (Internal) : [address] ? ? BLD - Plt 220 10*3/uL 130-450 Final [facility] 10*3/uL [facility] Hospital L ab (Internal) : [address] ? ? BLD - Anc 4.66 10*3/uL ? Final [facility] L ab (Internal) : [address] t ? ? BLD - Neutro 63.4 % 40.0-75.0 % Final [facility] L ab (Internal) : [address] ? ? BLD - Lymph 25.2 % 20.0-50.0 % Final [facility] L ab (Internal) : [address] t ? ? BLD - [place] 8.2 % 2.0-10.0 % Final [facility] L ab (Internal) : [address] ? ? BLD - Eos 2.0 % 1.0-6.0 % Final [facility] L ab (Internal) : [address] ? ? BLD - Baso 0.8 % 0.0-1.0 % Final [facility] L ab (Internal) : [address] t ? ? BLD - Ig 0.4 % 0.0-0.9 % Final [facility] L ab (Internal) : [address] t 07/11/2019 CMP, S High g/r 124 mg/dL 74-106 Final Nor th Serum or mg/dL [facility] Plasma Hospital L ab (Internal) : [address] t ? ? S - Bun 14 mg/dL 7-17 mg/dL Final [facility] Hospital L ab (Internal) : [address] ? ? S - Crea 0.80 mg/dL 0.52-1.04 Final Nor th mg/dL [facility] Hospital L ab (Internal) : [address] t ? ? S - Ca 9.3 mg/dL 8.4-10.2 Final [place] mg/dL [facility] Hospital L ab (Internal) : [address] t ? ? S - Na 139 mmol/L 137-145 Final [place] mmol/L [facility] Hospital L ab (Internal) : [address] t ? ? S - K 3.9 mmol/L 3.5-5.1 Final [place] mmol/L [facility] Hospital L ab (Internal) : [address] t ? ? S - Cl 106 mmol/L 98-107 Final [place] mmol/L [facility] Hospital L ab (Internal) : [address] ? ? S - Tco2 25.0 mmol/L 22.0-30.0 Final No rth mmol/L [facility] Hospital L ab (Internal) : [address] ? ? S - Tp 7.4 g/dL 6.3-8.2 Final [place] g/dL [facility] Hospital L ab (Internal) : [address] ? ? S - Alb 4.0 g/dL 3.5-5.0 Final [place] g/dL [facility] Hospital L ab (Internal) : [address] t ? ? S - Tbil 0.2 mg/dL 0.2-1.3 Final [place] mg/dL [facility] Hospital L ab (Internal) : [address] ? ? S - Alp 112 U/L 50-136 U/L Final [facility] Hospital L ab (Internal) : [address] ? ? S - Alt 19 U/L 9-52 U/L Final [place] (Sgpt) [facility] Hospital L ab (Internal) : [address] ? ? S - Ast 25 U/L 14-36 U/L Final [place] (Sgot) [facility] Hospital L ab (Internal) : [address] 07/11/2019 RBC BLD - Aniso occasional ? Final No rth Morpholog [place] y, Blood Hospital Lab (Internal) : [address] t ? ? BLD - Micro occasional ? Final [facility] Hospital L ab (Internal) : [address] t ? ? BLD - Oval occasional ? Final [facility] Hospital L ab (Internal) : [address] 06/25/2019 CRP, High S - Rcrp 0.20 mg/dL 0.10-0.30 Fin al [place] Sensitivi mg/dL Country ty, Serum Hospita l Lab or Plasma ([place]ster Man al): [address] t 06/25/2019 Rf BLD - Rf negative < negative < Final [place] (Rheumato 10 [IU]/mL 10 [IU]/mL [facility] L ab Factor), (Interna l): Serum [address] t 06/25/2019 ESR BLD - Esr 11 mm/h 0-30 mm/h Final No rth (Erythroc Country e Hospital L ab Sedimenta ([place] Man al): tion [address], [place] Blood 06/25/2019 Anca, S - Anca negative negat Final Nort h Serum Interpre [facility] L ab (Internal) : [address] t 06/25/2019 MERVAT S - MERVAT negative negat Final Nort h (Antinucl Interpre Count ry [facility] Hospital L ab Antibodie ([place] Man al): s) [address], [place] Serum 06/25/2019 Cyclic S - Cyclic <15.6 U <20.0 Final Nort h Citrullin Citrulli (negative) C ountry ated nated Hospital L ab Peptide Peptide (Interna l): Ab, Quant Ab, S [address] [facility] ay, Serum 06/16/2019 T4, Free, S - Ft4 0.90 NG/dL 0.78-2.[address] [facility] Serum NG/dL [facility] L ab (Internal) : [address] t 06/16/2019 TSH, S - Tsh 1.12 0.47-4.68 Final Nor th Serum or u[IU]/mL u[IU]/mL [facility] Hospital L ab (Internal) : [address] t 04/30/2019 Pap Test, MISC - Hpv see report ? [facility] [place] [facility] Lab (Internal[facility] : [address] ? ? MISC - Pap see report ? Final [facility] L ab (Internal) : [address] ? ? MISC - Report results ? Final [facility] L ab (Internal) : [address] t 02/17/2019 Urinalysi UR - UA-colo yellow pale yellow Fin al [place] s, r Country Dipstick, Hospita l Lab Reflex (Internal) : Micro [address] t ? ? UR - UA-appe clear clear Final [facility] Hospital L ab (Internal) : [address] t ? ? UR - UA-spec 1.025 1.003-1.035 Final Nor th Grav [facility] L ab (Internal) : [address] t ? ? UR - UA-pH 5.5 [pH] 4.6-8.0 Final [place] [pH] [facility] L ab (Internal) : [address] t ? ? UR - UA-leuk negative negative Final Nort h Est [facility] L ab (Internal) : [address] t ? ? UR - UA-nitr negative negative Final Nort h ite [facility] ab (Internal) : [address] t ? ? UR - UA-prot negative negative Final Nort h [facility] L ab (Internal) : [address] t ? ? UR - UA-gluc negative negative Final Nort h [facility] ab (Internal) : [address] t ? ? UR - UA-keto negative negative Final Nort h ne [facility] L ab (Internal) : [address] t ? ? UR - UA-urob normal normal Final [facility] ab (Internal) : [address] t ? ? UR - UA-bili negative negative Final Nort h [facility] ab (Internal) : [address] t ? ? UR ABNORM UA-bloo small negative Final [place] d [facility] ab (Internal) : [address] 02/17/2019 Urinalysi UR ABNORM UA-WBC 5-10 [hpf] 0-3 [hpf] Fi nal [place] [facility] Microscop Hospita l Lab ic (Internal) : [address] t ? ? UR ABNORM UA-RBC 10-25 [hpf] 0-2 [hpf] Final N orth AL [facility] L ab (Internal) : [address] t ? ? UR ABNORM UA-bact few [hpf] none seen Final No rth [place] eria [hpf] [facility] Hospital L ab (Internal) : [address] ? ? UR ABNORM UA-epit moderate none seen Final [place] th [place] helial [hpf] [hpf] [facility] Hospital L ab (Internal) : [address] ? ? UR ABNORM UA-mucu moderate none seen Final Nor th [place] s [hpf] [hpf] [facility] Hospital L ab (Internal) : [address] 02/17/2019 Culture UR - Final microbiology ? Final [place] ([place] results Country Count), Hospital Lab Urine (Internal) : [address] 02/17/2019 Lactic S - La 1.4 mmol/L 0.7-2.1 Final N orth Acid, mmol/L [facility] Hospital L ab (Internal) : [address] 02/17/2019 CBC W/ BLD - Wbc 6.6 10*3/uL 5.0-10.0 Final [place] Auto Diff 10*3/uL [facility] Hospital L ab (Internal) : [address] t ? ? BLD - Rbc 4.43 10*6/uL 4.10-5.30 Final N orth 10*6/uL [facility] Hospital L ab (Internal) : [address] t ? ? BLD Low Hgb 11.5 g/dL 12.0-16.0 Final Nort h g/dL [facility] L ab (Internal) : [address] t ? ? BLD Low Hct 36.0 % 37.0-47.0 % Final [facility] L ab (Internal) : [address] t ? ? BLD - Mcv 81.3 fL 80.0-96.0 Final [facility] Hospital L ab (Internal) : [address] ? ? BLD - Mch 26.0 pg 26.0-32.0 Final [facility] Hospital L ab (Internal) : [address] ? ? BLD - Mchc 31.9 g/dL 31.0-35.0 Final Nort h g/dL [facility] Hospital L ab (Internal) : [address] t ? ? BLD - Rdw 14.5 % 11.5-14.5 % Final [facility] L ab (Internal) : [address] ? ? BLD - Plt 246 10*3/uL 130-450 Final [facility] 10*3/uL [facility] L ab (Internal) : [address] ? ? BLD - Anc 4.58 10*3/uL ? Final [facility] L ab (Internal) : [address], [place] [address] t ? ? BLD - Neutro 69.5 % 40.0-75.0 % Final [facility] L ab (Internal) : [address], [place]os[address] christine ? ? BLD - Lymph 20.0 % 20.0-50.0 % Final [facility] L ab (Internal) : [address] christine ? ? BLD - [place] 8.2 % 2.0-10.0 % Final [facility] L ab (Internal) : [address] christine ? ? BLD - Eos 1.4 % 1.0-6.0 % Final [facility] L ab (Internal) : [address], [place] [address] christine ? ? BLD - Baso 0.6 % 0.0-1.0 % Final [facility] L ab (Internal) : [address], [place] [address] christine ? ? BLD - Ig 0.3 % 0.0-0.9 % Final [facility] L ab (Internal) : [address] christine 02/17/2019 UR - Hcgu negative negative Final [facility] Urine [facility] L ab (Internal) : [address] 02/17/2019 CMP, S High g/r 108 mg/dL 74-106 Final [facility] th Serum or mg/dL [facility] Plasma [facility] L ab (Internal) : [address] ? ? S - Bun 14 mg/dL 7-17 mg/dL Final [facility] L ab (Internal) : [address] t ? ? S - Crea 0.70 mg/dL 0.52-1.04 Final Nor th mg/dL [facility] L ab (Internal) : [address] t ? ? S - Ca 9.1 mg/dL 8.4-10.2 Final [place] mg/dL [facility] Hospital L ab (Internal) : [address] t ? ? S - Na 137 mmol/L 137-145 Final [place] mmol/L [facility] L ab (Internal) : [address] t ? ? S - K 3.9 mmol/L 3.5-5.1 Final [place] mmol/L [facility] L ab (Internal) : [address] ? ? S - Cl 102 mmol/L 98-107 Final [place] mmol/L [facility] L ab (Internal) : [address] ? ? S - Tco2 28.0 mmol/L 22.0-30.0 Final No rth mmol/L [facility] L [facility] (Internal) : [address] ? ? S - Tp 7.4 g/dL 6.3-8.2 Final [place] g/dL [facility] L ab (Internal) : [address] ? ? S - Alb 4.0 g/dL 3.5-5.0 Final [place] g/dL [facility] L ab (Internal) : [address] ? ? S - Tbil 0.4 mg/dL 0.2-1.3 Final [place] mg/dL [facility] L ab (Internal) : [address] ? ? S - Alp 116 U/L 50-136 U/L Final [facility] Hospital L ab (Internal) : [address] ? ? S - Alt 14 U/L 9-52 U/L Final [place] (Sgpt) [facility] Hospital L ab (Internal) : [address] t ? ? S - Ast 20 U/L 14-36 U/L Final [place] (Sgot) [facility] L ab (Internal) : [address] 02/17/2019 Lipase, S - Lip 149 U/L 23-300 U/L Final [place] Serum or [facility] Plasma Hospital L ab (Internal) : [address] 02/17/2019 Prothromb BLD - Pt 10.0 S 9.1-11.7 S Final [place] in Time [facility] Hospital L ab (Internal) : [address] ? ? BLD - Inr 1.0 ? Final [facility] L ab (Internal) : [address] 01/24/2019 Urinalysi UR - UA-colo yellow pale yellow Fin al [place] s, r Country Dipstick, Hospita l Lab Reflex (Internal) : Micro [address] t ? ? UR ABNORM UA-appe hazy clear Final [facility] L ab (Internal) : [address] t ? ? UR - UA-spec >=1.030 1.003-1.035 Final No rth Grav [facility] L ab (Internal) : [address] t ? ? UR - UA-pH 5.5 [pH] 4.6-8.0 Final [place] [pH] [facility] L ab (Internal) : [address] t ? ? UR ABNORM UA-leuk trace negative [facility] : [address] t ? ? UR - UA-nitr negative negative [facility] [address] t ? ? UR - UA-prot negative negative Final Nort [facility] L ab (Internal) : [address] t ? ? UR - UA-gluc negative negative Final [facility] ab (Internal) : [address] t ? ? UR - UA-keto negative negative Final Nort [facility] L ab (Internal) : [address] t ? ? UR - UA-urob normal normal Final [facility] L ab (Internal) : [address] t ? ? UR - UA-bili negative negative Final Nort [facility] ab (Internal) : [address] t ? ? UR ABNORM UA-bloo trace negative Final [facility] d [facility] L ab (Internal) : [address] 01/24/2019 Urinalysi UR ABNORM UA-WBC 5-10 [hpf] 0-3 [hpf] Fi [place] [facility] Microscop Hospita l Lab ic (Internal) : [address] t ? ? UR - UA-RBC 0-2 [hpf] 0-2 [hpf] Final [facility] L ab (Internal) : [address] t ? ? UR ABNORM UA-bact moderate none seen Final Nor [place] eria [hpf] [hpf] [facility] L ab (Internal) : [address] t ? ? UR ABNORM UA-epit moderate none seen Final Nor [place] apolinar [hpf] [hpf] [facility] L ab (Internal) : [address] t ? ? UR ABNORM UA-mucu moderate none seen Final Nor th [place] s [hpf] [hpf] [facility] L ab (Internal) : [address] t 01/24/2019 CBC W/ BLD - Wbc 5.7 10*3/uL 5.0-10.0 Final [place] Auto Diff 10*3/uL [facility] L ab (Internal) : [address] t ? ? BLD - Rbc 4.41 10*6/uL 4.10-5.30 Final N orth 10*6/uL [facility] Hospital L ab (Internal) : [address] t ? ? BLD Low Hgb 11.5 g/dL 12.0-16.0 Final Nort h g/dL [facility] L ab (Internal) : [address] t ? ? BLD Low Hct 35.5 % 37.0-47.0 % Final [facility] L ab (Internal) : [address] t ? ? BLD - Mcv 80.5 fL 80.0-96.0 Final [facility] L ab (Internal) : [address] t ? ? BLD - Mch 26.1 pg 26.0-32.0 Final [facility] L ab (Internal) : [address] t ? ? BLD - Mchc 32.4 g/dL 31.0-35.0 Final Nort h g/dL [facility] L ab (Internal) : [address] t ? ? BLD High Rdw 15.1 % 11.5-14.5 % Final [facility] L ab (Internal) : [address] t ? ? BLD - Plt 198 10*3/uL 130-450 Final Nort h 10*3/uL [facility] L ab (Internal) : [address], [place] t ? ? BLD - Anc 3.43 10*3/uL ? Final [facility] L ab (Internal) : [address], [place] [address] t ? ? BLD - Neutro 60.2 % 40.0-75.0 % Final [facility] L ab (Internal) : [address] t ? ? BLD - Lymph 26.4 % 20.0-50.0 % Final [facility] L ab (Internal) : [address] t ? ? BLD - [place] 9.5 % 2.0-10.0 % Final [facility] L ab (Internal) : [address] t ? ? BLD - Eos 2.6 % 1.0-6.0 % Final [facility] L ab (Internal) : [address] ? ? BLD - Baso 0.9 % 0.0-1.0 % Final [facility] L ab (Internal) : [address] t ? ? BLD - Ig 0.4 % 0.0-0.9 % Final [facility] L ab (Internal) : [address] 01/24/2019 Culture UR - Final microbiology ? Final [place] ([place] results Country Count), Hospital Lab Urine (Internal) : [address] 01/24/2019 CMP, S - g/r 105 mg/dL 74-106 Final [facility] Serum or mg/dL [facility] Hospital L ab (Internal) : [address] t ? ? S - Bun 14 mg/dL 7-17 mg/dL Final [facility] L ab (Internal) : [address] t ? ? S - Crea 0.60 mg/dL 0.52-1.04 Final Nor th mg/dL [facility] L ab (Internal) : [address] t ? ? S - Ca 9.0 mg/dL 8.4-10.2 Final [place] mg/dL [facility] L ab (Internal) : [address] ? ? S - Na 140 mmol/L 137-145 Final [place] mmol/L [facility] L ab (Internal) : [address] ? ? S - K 3.6 mmol/L 3.5-5.1 Final [place] mmol/L [facility] Hospital L ab (Internal) : [address] ? ? S - Cl 105 mmol/L 98-107 Final [place] mmol/L [facility] L ab (Internal) : [address] ? ? S - Tco2 26.0 mmol/L 22.0-30.0 Final No rth mmol/L [facility] Hospital L ab (Internal) : [address] ? ? S - Tp 7.1 g/dL 6.3-8.2 Final [place] g/dL [facility] L ab (Internal) : [address] ? ? S - Alb 3.8 g/dL 3.5-5.0 Final [place] g/dL [facility] L ab (Internal) : [address] ? ? S - Tbil 0.3 mg/dL 0.2-1.3 Final [place] mg/dL [facility] L ab (Internal) : [address] ? ? S - Alp 97 U/L 50-136 U/L Final [facility] Hospital L ab (Internal) : [address] ? ? S - Alt <10 U/L 9-52 U/L Final [place] (Sgpt) [facility] L ab (Internal) : [address] ? ? S - Ast 18 U/L 14-36 U/L Final [place] (Sgot) [facility] Hospital L ab (Internal) : [address] christine 01/24/2019 RBC BLD - [place] small ? Final [place] Morpholog Country y, Blood Hospital Lab (Internal) : [address] 01/05/2019 CBC W/ BLD - Wbc 6.2 10*3/uL 5.0-10.0 Final [place] Auto Diff 10*3/uL [facility] Hospital L ab (Internal) : [address] ? ? BLD - Rbc 4.51 10*6/uL 4.10-5.30 Final N orth 10*6/uL [facility] L ab (Internal) : [address] ? ? BLD Low Hgb 11.7 g/dL 12.0-16.0 Final Nort h g/dL [facility] Hospital L ab (Internal) : [address] ? ? BLD Low Hct 36.3 % 37.0-47.0 % Final [facility] L ab (Internal) : [address] ? ? BLD - Mcv 80.5 fL 80.0-96.0 Final [facility] L ab (Internal) : [address] ? ? BLD Low Mch 25.9 pg 26.0-32.0 Final [facility] L ab (Internal) : [address] ? ? BLD - Mchc 32.2 g/dL 31.0-35.0 Final Nort h g/dL [facility] L ab (Internal) : [address] ? ? BLD High Rdw 15.7 % 11.5-14.5 % Final [facility] L ab (Internal) : [address] ? ? BLD - Plt 247 10*3/uL 130-450 Final Nort h 10*3/uL [facility] Hospital L ab (Internal) : [address] ? ? BLD - Anc 3.96 10*3/uL ? [facility] L ab (Internal) : [address] ? ? BLD - Neutro 64.3 % 40.0-75.0 % Final [facility] L ab (Internal) : [address] ? ? BLD - Lymph 23.2 % 20.0-50.0 % Final [facility] L ab (Internal) : [address] ? ? BLD - [place] 7.6 % 2.0-10.0 % Final [facility] L ab (Internal) : [address] ? ? BLD - Eos 3.6 % 1.0-6.0 % Final [facility] ab (Internal) : [address] ? ? BLD - Baso 0.8 % 0.0-1.0 % Final [facility] L ab (Internal) : [address], [place] ? ? BLD - Ig 0.5 % 0.0-0.9 % Final [facility] Hospital L ab (Internal) : [address] t 01/05/2019 CMP, S - g/r 79 mg/dL 74-106 Final Nort h Serum or mg/dL [facility] L ab (Internal) : [address] t ? ? S - Bun 15 mg/dL 7-17 mg/dL Final Nort h [facility] Hospital L ab (Internal) : [address] t ? ? S - Crea 0.70 mg/dL 0.52-1.04 Final Nor th mg/dL [facility] L ab (Internal) : [address] t ? ? S - Ca 9.3 mg/dL 8.4-10.2 Final [place] mg/dL [facility] L ab (Internal) : [address] t ? ? S - Na 141 mmol/L 137-145 Final [place] mmol/L [facility] L ab (Internal) : [address] t ? ? S - K 3.6 mmol/L 3.5-5.1 Final [place] mmol/L [facility] L ab (Internal) : [address] t ? ? S - Cl 105 mmol/L 98-107 Final [place] mmol/L [facility] L ab (Internal) : [address] t ? ? S - Tco2 24.0 mmol/L 22.0-30.0 Final No rth mmol/L [facility] Hospital L ab (Internal) : [address] t ? ? S - Tp 7.5 g/dL 6.3-8.2 Final [place] g/dL [facility] Hospital L ab (Internal) : [address] t ? ? S - Alb 4.3 g/dL 3.5-5.0 Final [place] g/dL [facility] L ab (Internal) : [address] t ? ? S - Tbil 0.6 mg/dL 0.2-1.3 Final [place] mg/dL [facility] Hospital L ab (Internal) : [address] t ? ? S - Alp 108 U/L 50-136 U/L Final [facility] Hospital L ab (Internal) : [address] t ? ? S - Alt 20 U/L 9-52 U/L Final [place] (Sgpt) [facility] L ab (Internal) : [address] ? ? S - Ast 21 U/L 14-36 U/L Final [place] (Sgot) [facility] L ab (Internal) : [address] 01/05/2019 Lipase, S - Lip 91 U/L 23-300 U/L Final N orth Serum or [facility] L ab (Internal) : [address] 01/05/2019 RBC BLD - [place] small ? Final [place] Morpholog Country y, Blood Hospital Lab (Internal) : [address] 12/31/2018 Urease, TISS - Final microbiology ? Final [place] Qualitati results Countr y ve, Hospital L ab Tissue (Internal) : [address] 12/31/2018 Pathology TISS - Report results ? Final N orth Study below [facility] ab (Internal) : [address] 12/15/2018 Pathology TISS - Report results ? Final N orth Study below [facility] ab (Internal) : [address] 12/09/2018 CBC W/ BLD Low Wbc 4.1 10*3/uL 5.0-10.0 Final [place] Auto Diff 10*3/uL [facility] Hospital L ab (Internal) : [address] ? ? BLD - Rbc 4.58 10*6/uL 4.10-5.30 Final N orth 10*6/uL [facility] L ab (Internal) : [address] ? ? BLD Low Hgb 11.9 g/dL 12.0-16.0 Final Nort h g/dL [facility] L ab (Internal) : [address] ? ? BLD Low Hct 36.8 % 37.0-47.0 % Final [facility] L ab (Internal) : [address] ? ? BLD - Mcv 80.3 fL 80.0-96.0 Final [facility] L ab (Internal) : [address] ? ? BLD - Mch 26.0 pg 26.0-32.0 Final [facility] L ab (Internal) : [address] ? ? BLD - Mchc 32.3 g/dL 31.0-35.0 Final Nort h g/dL [facility] Hospital L ab (Internal) : [address] ? ? BLD High Rdw 15.3 % 11.5-14.5 % Final [facility] L ab (Internal) : [address] ? ? BLD - Plt 208 10*3/uL 130-450 Final Nort h 10*3/uL [facility] Hospital L ab (Internal) : [address] ? ? BLD - Anc 2.39 10*3/uL ? [facility] L ab (Internal) : [address] ? ? BLD - Neutro 58.6 % 40.0-75.0 % [facility] L ab (Internal) : [address] t ? ? BLD - Lymph 29.7 % 20.0-50.0 % Final [facility] L ab (Internal) : [address] t ? ? BLD - [place] 9.1 % 2.0-10.0 % Final [facility] L ab (Internal) : [address] ? ? BLD - Eos 1.7 % 1.0-6.0 % Final [facility] L ab (Internal) : [address] t ? ? BLD - Baso 0.7 % 0.0-1.0 % Final [facility] L ab (Internal) : [address] t ? ? BLD - Ig 0.2 % 0.0-0.9 % Final [facility] L ab (Internal) : [address] t 12/09/2018 CMP, S - g/r 79 mg/dL 74-106 Final Nort Serum or mg/dL [facility] L ab (Internal) : [address] t ? ? S - Bun 13 mg/dL 7-17 mg/dL Final Nort [facility] Hospital L ab (Internal) : [address] ? ? S - Crea 0.80 mg/dL 0.52-1.04 Final Nor th mg/dL [facility] L ab (Internal) : [address] t ? ? S - Ca 9.1 mg/dL 8.4-10.2 Final [place] mg/dL [facility] L ab (Internal) : [address] t ? ? S - Na 140 mmol/L 137-145 Final [place] mmol/L [facility] L ab (Internal) : [address] t ? ? S - K 3.5 mmol/L 3.5-5.1 Final [place] mmol/L [facility] L ab (Internal) : [address] t ? ? S - Cl 104 mmol/L 98-107 Final [place] mmol/L [facility] L ab (Internal) : [address] t ? ? S - Tco2 26.0 mmol/L 22.0-30.0 Final No rth mmol/L [facility] L ab (Internal) : [address] t ? ? S - Tp 7.4 g/dL 6.3-8.2 Final [place] g/dL [facility] L ab (Internal) : [address] t ? ? S - Alb 4.2 g/dL 3.5-5.0 Final [place] g/dL [facility] L ab (Internal) : [address] t ? ? S - Tbil 0.6 mg/dL 0.2-1.3 Final [place] mg/dL [facility] L ab (Internal) : [address] t ? ? S - Alp 94 U/L 50-136 U/L Final [facility] Hospital L ab (Internal) : [address] t ? ? S - Alt 19 U/L 9-52 U/L Final [place] (Sgpt) [facility] L ab (Internal) : [address] t ? ? S - Ast 23 U/L 14-36 U/L Final [place] (Sgot) [facility] L ab (Internal) : [address] 12/09/2018 RBC BLD - [place] small ? Final [place] Morpholog Country y, Blood Hospital Lab (Internal) : [address] 12/09/2018 Troponin S - Trop <0.06 NG/mL 0.00-0.06 Fin al [place] I, Serum NG/mL [facility] Lab (Internal[facility] : [address] Martita king 12/05/2018 Lactic S - La 1.8 mmol/L 0.7-2.1 Final N orth Acid, mmol/L [facility] L ab (Internal) : [address] Martita t 12/05/2018 CBC W/ BLD - Wbc 5.5 10*3/uL 5.0-10.0 Final [place] Auto Diff 10*3/uL [facility] Hospital L ab (Internal) : [address], Martita king ? ? BLD - Rbc 4.81 10*6/uL 4.10-5.30 Final N orth 10*6/uL [facility] L ab (Internal) : [address] ? ? BLD - Hgb 12.6 g/dL 12.0-16.0 Final Nort h g/dL [facility] Hospital L ab (Internal) : [address] ? ? BLD - Hct 38.6 % 37.0-47.0 % Final [facility] L ab (Internal) : [address] ? ? BLD - Mcv 80.2 fL 80.0-96.0 Final [facility] L ab (Internal) : [address] ? ? BLD - Mch 26.2 pg 26.0-32.0 Final [facility] L ab (Internal) : [address] ? ? BLD - Mchc 32.6 g/dL 31.0-35.0 Final Nort h g/dL [facility] Hospital L ab (Internal) : [address] ? ? BLD High Rdw 15.3 % 11.5-14.5 % Final [facility] L ab (Internal) : [address] christine ? ? BLD - Plt 211 10*3/uL 130-450 Final Nort h 10*3/uL [facility] L ab (Internal) : [address] ? ? BLD - Anc 3.63 10*3/uL ? Final Nort h [facility] Hospital L ab (Internal) : [address] t ? ? BLD - Neutro 65.6 % 40.0-75.0 % Final [facility] Hospital L ab (Internal) : [address] ? ? BLD - Lymph 24.7 % 20.0-50.0 % Final [facility] Hospital L ab (Internal) : [address] t ? ? BLD - [place] 7.6 % 2.0-10.0 % Final [facility] Hospital L ab (Internal) : [address] t ? ? BLD - Eos 1.4 % 1.0-6.0 % Final [facility] Hospital L ab (Internal) : [address] t ? ? BLD - Baso 0.5 % 0.0-1.0 % Final [facility] Hospital L ab (Internal) : [address] t ? ? BLD - Ig 0.2 % 0.0-0.9 % Final [facility] Hospital L ab (Internal) : [address] t 12/05/2018 BMP, S - g/r 105 mg/dL 74-106 Final Nor th Serum or mg/dL [facility] L ab (Internal) : [address] t ? ? S - Bun 15 mg/dL 7-17 mg/dL Final [facility] Hospital L ab (Internal) : [address] t ? ? S - Crea 0.70 mg/dL 0.52-1.04 Final Nor th mg/dL [facility] Hospital L ab (Internal) : [address] t ? ? S - Ca 9.6 mg/dL 8.4-10.2 Final [place] mg/dL [facility] L ab (Internal) : [address] t ? ? S - Na 142 mmol/L 137-145 Final [place] mmol/L [facility] L ab (Internal) : [address] t ? ? S - K 3.9 mmol/L 3.5-5.1 Final [place] mmol/L [facility] L ab (Internal) : [address] t ? ? S - Cl 105 mmol/L 98-107 Final [place] mmol/L [facility] L ab (Internal) : [address] t ? ? S - Tco2 25.0 mmol/L 22.0-30.0 Final No rth mmol/L [facility] Hospital L ab (Internal) : [address] t 12/05/2018 Lipase, S - Lip 92 U/L 23-300 U/L Final N orth Serum or [facility] L ab (Internal) : [address] t 12/05/2018 Hepatic S - Tbil 0.3 mg/dL 0.2-1.3 Final N orth Function mg/dL Country Panel, Hospital L ab Serum (Internal) : [address] ? ? S - Dbil 0.2 mg/dL 0.0-0.3 Final [place] mg/dL [facility] L ab (Internal) : [address] ? ? S - Alp 88 U/L 50-136 U/L Final [facility] L ab (Internal) : [address] ? ? S - Alt 17 U/L 9-52 U/L Final [place] (Sgpt) [facility] L ab (Internal) : [address] ? ? S - Ast 19 U/L 14-36 U/L Final [place] (Sgot) [facility] L ab (Internal) : [address] t ? ? S - Ggt <15 U/L 12-43 U/L Final [facility] L ab (Internal) : [address] ? ? S - Tp 7.8 g/dL 6.3-8.2 Final [place] g/dL [facility] L ab (Internal) : [address] ? ? S - Alb 4.4 g/dL 3.5-5.0 Final [place] g/dL [facility] L ab (Internal) : [address] 12/05/2018 RBC BLD - Aniso small ? Final [place] Morpholog Country y, Blood Hospital Lab (Internal) : [address] 12/01/2018 CBC W/ BLD - Wbc 7.0 10*3/uL 5.0-10.0 Final [place] Auto Diff 10*3/uL [facility] L ab (Internal) : [address] ? ? BLD - Rbc 4.97 10*6/uL 4.10-5.30 Final N orth 10*6/uL [facility] L ab (Internal) : [address] ? ? BLD - Hgb 12.8 g/dL 12.0-16.0 Final Nort h g/dL [facility] L ab (Internal) : [address] ? ? BLD - Hct 39.8 % 37.0-47.0 % Final [facility] L ab (Internal) : [address] ? ? BLD - Mcv 80.1 fL 80.0-96.0 Final [facility] L ab (Internal) : [address] ? ? BLD Low Mch 25.8 pg 26.0-32.0 Final [facility] L ab (Internal) : [address] ? ? BLD - Mchc 32.2 g/dL 31.0-35.0 [facility] L ab (Internal) : [address] ? ? BLD High Rdw 15.1 % 11.5-14.5 % Final [facility] L ab (Internal) : [address] ? ? BLD - Plt 210 10*3/uL 130-450 Final Nort h 10*3/uL [facility] L ab (Internal) : [address] ? ? BLD - Anc 4.55 10*3/uL ? Final Nort [facility] Hospital L ab (Internal) : [address] ? ? BLD - Neutro 64.9 % 40.0-75.0 % Final Nort [facility] L ab (Internal) : [address] ? ? BLD - Lymph 25.2 % 20.0-50.0 % Final [facility] L ab (Internal) : [address] ? ? BLD - [place] 6.8 % 2.0-10.0 % Final [facility] L ab (Internal) : [address] ? ? BLD - Eos 1.9 % 1.0-6.0 % Final [facility] L ab (Internal) : [address] ? ? BLD - Baso 0.9 % 0.0-1.0 % Final [facility] L ab (Internal) : [address] ? ? BLD - Ig 0.3 % 0.0-0.9 % Final [facility] L ab (Internal) : [address] 12/01/2018 Urinalysi UR - UA-colo yellow pale yellow Fin al [place] s, r [facility] Dipstick, Hospita l Lab Reflex (Internal) : Micro [address] ? ? UR ABNORM UA-appe hazy clear Final [facility] L ab (Internal) : [address] ? ? UR - UA-spec >=1.030 1.003-1.035 Final No rth Grav [facility] L ab (Internal) : [address] ? ? UR - UA-pH 5.5 [pH] 4.6-8.0 Final [place] [pH] [facility] L ab (Internal) : [address] ? ? UR - UA-leuk negative negative Final Nort h [facility] L ab (Internal) : [address] ? ? UR - UA-nitr negative negative Final Nort h ite [facility] L ab (Internal) : [address] ? ? UR - UA-prot negative negative Final Nort [facility] L ab (Internal) : [address] ? ? UR - UA-gluc negative negative Final Nort [facility] L ab (Internal) : [address] ? ? UR ABNORM UA-keto trace negative Final [facility] L ab (Internal) : [address] ? ? UR - UA-urob normal normal Final [facility] L ab (Internal) : [address] ? ? UR ABNORM UA-bili small negative Final [facility] ab (Internal) : [address] ? ? UR ABNORM UA-bloo trace negative Final [facility] ab (Internal) : [address] 12/01/2018 UR - Hcgu negative negative Final [place] Test, [facility] Urine [facility] L ab (Internal) : [address] t 12/01/2018 CMP, S - g/r 93 mg/dL 74-106 Final Nort h Serum or mg/dL [facility] L ab (Internal) : [address] t ? ? S - Bun 13 mg/dL 7-17 mg/dL Final Nort [facility] L ab (Internal) : [address] t ? ? S - Crea 0.60 mg/dL 0.52-1.04 Final Nor th mg/dL [facility] L ab (Internal) : [address] t ? ? S - Ca 9.3 mg/dL 8.4-10.2 Final [place] mg/dL [facility] L ab (Internal) : [address] t ? ? S - Na 141 mmol/L 137-145 Final [place] mmol/L [facility] L ab (Internal) : [address] t ? ? S - K 3.6 mmol/L 3.5-5.1 Final [place] mmol/L [facility] L ab (Internal) : [address] t ? ? S - Cl 104 mmol/L 98-107 Final [place] mmol/L [facility] L [facility] (Internal) : [address] t ? ? S - Tco2 24.0 mmol/L 22.0-30.0 Final No rth mmol/L [facility] L ab (Internal) : [address] t ? ? S - Tp 7.9 g/dL 6.3-8.2 Final [place] g/dL [facility] L ab (Internal) : [address] t ? ? S - Alb 4.4 g/dL 3.5-5.0 Final [place] g/dL [facility] L ab (Internal) : [address] t ? ? S - Tbil 0.4 mg/dL 0.2-1.3 Final [place] mg/dL [facility] L ab (Internal) : [address] ? ? S - Alp 105 U/L 50-136 U/L Final [place] [facility] L ab (Internal) : [address] ? ? S - Alt 16 U/L 9-52 U/L Final [place] (Sgpt) [facility] L ab (Internal) : [address] ? ? S - Ast 21 U/L 14-36 U/L Final [place] (Sgot) [facility] ab (Internal) : [address] t 12/01/2018 Lipase, S - Lip 114 U/L 23-300 U/L Final [place] Serum or [facility] Plasma [facility] L ab (Internal) : [address] 12/01/2018 Urinalysi UR ABNORM UA-WBC 5-10 [hpf] 0-3 [hpf] Fi nal [place] s, [place] [facility] l Lab ic (Internal) : [address] ? ? UR - UA-RBC 0-2 [hpf] 0-2 [hpf] Final Nor [facility] ab (Internal) : [address] ? ? UR ABNORM UA-bact moderate none seen Final Nor th [place] eria [hpf] [hpf] [facility] ab (Internal) : [address] ? ? UR ABNORM UA-epit moderate none seen Final Nor [place] helial [hpf] [hpf] [facility] ab (Internal) : [address] ? ? UR ABNORM UA-mucu moderate none seen Final Nor th [place] s [hpf] [hpf] [facility] ab (Internal) : [address] 12/01/2018 Culture UR - Final microbiology ? Final [place] ([place] results Country Count), Hospital Lab Urine (Internal) : [address] 12/01/2018 RBC BLD - Aniso occasional ? Final No rth Morpholog Country y, Blood Hospital Lab (Internal) : [address] ? ? BLD - Oval occasional ? Final [facility] ab (Internal) : [address] 11/24/2018 CBC W/ BLD - Wbc 5.7 10*3/uL 5.0-10.0 Final [place] Auto Diff 10*3/uL [facility] L ab (Internal) : [address] ? ? BLD - Rbc 5.09 10*6/uL 4.10-5.30 Final N orth 10*6/uL [facility] L ab (Internal) : [address] ? ? BLD - Hgb 13.0 g/dL 12.0-16.0 Final Nort h g/dL [facility] L ab (Internal) : [address] ? ? BLD - Hct 40.9 % 37.0-47.0 % Final [facility] L ab (Internal) : [address] ? ? BLD - Mcv 80.4 fL 80.0-96.0 Final [facility] L ab (Internal) : [address] ? ? BLD Low Mch 25.5 pg 26.0-32.0 Final [facility] Hospital L ab (Internal) : [address] ? ? BLD - Mchc 31.8 g/dL 31.0-35.0 Final Nort h g/dL [facility] L ab (Internal) : [address] ? ? BLD High Rdw 14.7 % 11.5-14.5 % Final [facility] L ab (Internal) : [address] ? ? BLD - Plt 243 10*3/uL 130-450 Final Nort h 10*3/uL [facility] L ab (Internal) : [address] ? ? BLD - Anc 3.67 10*3/uL ? Final Nort [facility] L ab (Internal) : [address] ? ? BLD - Neutro 64.9 % 40.0-75.0 % Final Nort h [facility] L ab (Internal) : [address] ? ? BLD - Lymph 25.1 % 20.0-50.0 % Final [facility] L ab (Internal) : [address] ? ? BLD - [place] 7.1 % 2.0-10.0 % Final [facility] L ab (Internal) : [address] ? ? BLD - Eos 1.6 % 1.0-6.0 % Final [facility] L ab (Internal) : [address] ? ? BLD - Baso 0.9 % 0.0-1.0 % Final [facility] L ab (Internal) : [address] t ? ? BLD - Ig 0.4 % 0.0-0.9 % Final [facility] L ab (Internal) : [address] 11/24/2018 Urinalysi UR - UA-colo dark yellow pale yello w Final [place] s, r [facility] Dipstick, Hospita l Lab Reflex (Internal) : Micro [address] t ? ? UR ABNORM UA-appe cloudy clear Final [facility] L ab (Internal) : [address] t ? ? UR - UA-spec >=1.030 1.003-1.035 Final No rth Grav [facility] L ab (Internal) : [address] ? ? UR - UA-pH 5.5 [pH] 4.6-8.0 Final [place] [pH] [facility] L ab (Internal) : [address] ? ? UR - UA-leuk negative negative Final Nort h [facility] L ab (Internal) : [address] ? ? UR - UA-nitr negative negative Final Nort h ite [facility] L ab (Internal) : [address] ? ? UR ABNORM UA-prot 2+ negative Final [facility] L ab (Internal) : [address] ? ? UR - UA-gluc negative negative Final Nort [facility] L ab (Internal) : [address] ? ? UR - UA-keto negative negative Final Nort [facility] L ab (Internal) : [address] ? ? UR - UA-urob normal normal Final [facility] L ab (Internal) : [address] ? ? UR ABNORM UA-bili small negative Final [facility] L ab (Internal) : [address] ? ? UR ABNORM UA-bloo small negative Final [facility] L ab (Internal) : [address] 11/24/2018 CMP, S High g/r 124 mg/dL 74-106 Final [facility] Serum or mg/dL [facility] L ab (Internal) : [address] ? ? S - Bun 13 mg/dL 7-17 mg/dL Final Nort [facility] L ab (Internal) : [address] t ? ? S - Crea 0.80 mg/dL 0.52-1.04 Final Nor th mg/dL [facility] L ab (Internal) : [address] t ? ? S - Ca 9.4 mg/dL 8.4-10.2 Final [place] mg/dL [facility] L ab (Internal) : [address] t ? ? S - Na 139 mmol/L 137-145 Final [place] mmol/L [facility] L ab (Internal) : [address] t ? ? S - K 3.6 mmol/L 3.5-5.1 Final [place] mmol/L [facility] L ab (Internal) : [address] t ? ? S - Cl 102 mmol/L 98-107 Final [place] mmol/L [facility] L ab (Internal) : [address] t ? ? S - Tco2 25.0 mmol/L 22.0-30.0 Final No rth mmol/L [facility] L ab (Internal) : [address] t ? ? S - Tp 8.0 g/dL 6.3-8.2 Final [place] g/dL [facility] L ab (Internal) : [address] t ? ? S - Alb 4.5 g/dL 3.5-5.0 Final [place] g/dL [facility] L ab (Internal) : [address] t ? ? S - Tbil 0.6 mg/dL 0.2-1.3 Final [place] mg/dL [facility] L ab (Internal) : [address] ? ? S - Alp 115 U/L 50-136 U/L Final [facility] Hospital L ab (Internal) : [address] t ? ? S - Alt 20 U/L 9-52 U/L Final [place] (Sgpt) [facility] L ab (Internal) : [address] ? ? S - Ast 24 U/L 14-36 U/L Final [place] (Sgot) [facility] Hospital L ab (Internal) : [address] 11/24/2018 Lipase, S - Lip 96 U/L 23-300 U/L Final N orth Serum or [facility] Plasma Hospital L ab (Internal) : [address] christine 11/24/2018 Urinalysi UR ABNORM UA-WBC 10-25 [hpf] 0-3 [hpf] F inal [place] [facility] l Lab ic (Internal) : [address] ? ? UR - UA-RBC 0-2 [hpf] 0-2 [hpf] Final Nor th [facility] L ab (Internal) : [address] ? ? UR ABNORM UA-bact moderate none seen Final Nor th [place] eria [hpf] [hpf] [facility] L ab (Internal) : [address] ? ? UR ABNORM UA-epit moderate none seen Final Nor th [place] helial [hpf] [hpf] [facility] L ab (Internal) : [address] ? ? UR ABNORM UA-mucu moderate none seen Final Nor th [place] s [hpf] [hpf] [facility] L ab (Internal) : [address] 11/24/2018 Culture UR - Final microbiology ? Final [place] ([place] results Country [facility] Lab Urine (Internal) : [address] 11/24/2018 UR - Hcgu negative negative Final [place] Test, [facility] Urine Hospital L ab (Internal) : [address] 04/11/2018 CBC W/ BLD Low Wbc 3.4 10*3/uL 5.0-10.0 Final [place] Auto Diff 10*3/uL [facility] Hospital L ab (Internal) : [address] ? ? BLD - Rbc 4.14 10*6/uL 4.10-5.30 Final N orth 10*6/uL [facility] L ab (Internal) : [address] ? ? BLD Low Hgb 10.7 g/dL 12.0-16.0 Final Nort h g/dL [facility] L ab (Internal) : [address] ? ? BLD Low Hct 33.5 % 37.0-47.0 % Final [facility] L ab (Internal) : [address] ? ? BLD - Mcv 80.9 fL 80.0-96.0 Final [facility] Hospital L ab (Internal) : [address] ? ? BLD Low Mch 25.8 pg 26.0-32.0 Final [facility] L ab (Internal) : [address] t ? ? BLD - Mchc 31.9 g/dL 31.0-35.0 Final [facility] g/dL [facility] Hospital L ab (Internal) : [address] ? ? BLD High Rdw 15.6 % 11.5-14.5 % Final [facility] L ab (Internal) : [address] ? ? BLD - Plt 190 10*3/uL 130-450 Final [facility] 10*3/uL [facility] L ab (Internal) : [address] ? ? BLD - Anc 1.48 10*3/uL ? Final [facility] L ab (Internal) : [address] t ? ? BLD - Neutro 44.2 % 40.0-75.0 % Final [facility] L ab (Internal) : [address], [address] t ? ? BLD - Lymph 39.1 % 20.0-50.0 % Final [facility] L ab (Internal) : [address], [address] t ? ? BLD High [place] 11.6 % 2.0-10.0 % Final [facility] L ab (Internal) : [address] t ? ? BLD - Eos 3.9 % 1.0-6.0 % Final [facility] L ab (Internal) : [address] ? ? BLD - Baso 0.9 % 0.0-1.0 % Final [facility] Hospital L ab (Internal) : [address] ? ? BLD - Ig 0.3 % 0.0-0.9 % Final [facility] L ab (Internal) : [address] t 04/11/2018 RBC BLD - An[place] small ? Final [facility] Country y, Blood Hospital Lab (Internal) : [address] t 04/11/2018 CMP, S - g/r 106 mg/dL 74-106 Final Nor th Serum or mg/dL [facility] Plasma Hospital L ab (Internal) : [address] ? ? S - Bun 13 mg/dL 7-17 mg/dL Final Nort h [facility] L ab (Internal) : [address] ? ? S - Crea 0.70 mg/dL 0.52-1.04 Final Nor th mg/dL [facility] L ab (Internal) : [address] ? ? S - Ca 9.0 mg/dL 8.4-10.2 Final [place] mg/dL [facility] L ab (Internal) : [address] ? ? S - Na 141 mmol/L 137-145 Final [place] mmol/L [facility] Hospital L ab (Internal) : [address] ? ? S - K 3.9 mmol/L 3.5-5.1 Final [place] mmol/L [facility] Hospital L ab (Internal) : [address] ? ? S High Cl 109 mmol/L 98-107 Final [place] mmol/L [facility] Hospital L ab (Internal) : [address] ? ? S - Tco2 25.0 mmol/L 22.0-30.0 Final No rth mmol/L [facility] L ab (Internal) : [address] t ? ? S - Tp 6.8 g/dL 6.3-8.2 Final [place] g/dL [facility] L ab (Internal) : [address] ? ? S - Alb 3.7 g/dL 3.5-5.0 Final [place] g/dL [facility] L ab (Internal) : [address] t ? ? S - Tbil 0.2 mg/dL 0.2-1.3 Final [place] mg/dL [facility] Hospital L ab (Internal) : [address] t ? ? S - Alp 94 U/L 50-136 U/L Final [facility] Hospital L ab (Internal) : [address] ? ? S - Alt 30 U/L 9-52 U/L Final [place] (Sgpt) [facility] Hospital L ab (Internal) : [address] ? ? S - Ast 30 U/L 14-36 U/L Final [place] (Sgot) [facility] Hospital L ab (Internal) : [address] 04/11/2018 Partial BLD - APTT 24 s 22-35 s Final Nort h Thrombopl (Op) Pending sale to [facility] L ab Time (Internal) : [address] 04/11/2018 Prothromb BLD - Pt 10.9 S 9.1-11.7 S Final [place] in Time [facility] Hospital L ab (Internal) : [address] ? ? BLD - Inr 1.1 ? Final [facility] Hospital L ab (Internal) : [address] [facility] 02/15/2018 Influenza NASAL ? Final microbiology ? [facility] (A+B) Ag, results Countr y Qual, Hospital L ab Rapid, (Internal) : Nose [address] 02/15/2018 UR ? Hcgu negative negative Final [place] Test, [facility] Urine Hospital L ab (Internal) : [address] [facility] [place] 10/02/2017 HbA1C BLD ? Ha1C 5.7 % 4.0-6.0 % Final [facility] th (Hemoglob Country in a1C), Hospital Lab Blood (Internal) : [address] 06/13/2017 UR ? Hcgu negative negative Final [place] Test, [facility] Urine Hospital L ab (Internal) : [address] t 06/13/2017 Urinalysi UR ? UA-WBC 0-3 [hpf] 0-3 [hpf] James Mcgee s, Country [facility] l Lab ic (Internal) : [address] ? ? UR ? UA-RBC 0-2 [hpf] 0-2 [hpf] Final Nor th [facility] Hospital L ab (Internal) : [address] ? ? UR ? UA-bact rare [hpf] none seen Final N suzette hoffman [hpf] [facility] Hospital L ab (Internal) : [address] ? ? UR ? UA-epit rare [hpf] none seen Final N suzette jiang [hpf] [facility] Hospital L ab (Internal) : [address] t ? ? UR ? UA-mucu none seen none seen Final No rth s [hpf] [hpf] [facility] Hospital L ab (Internal) : [address] 06/13/2017 Urinalysi UR ? UA-colo yellow pale yellow Fin al [place] s, r Country Dipstick, Hospita l Lab Reflex (Internal) : Micro [address] t ? ? UR ? UA-appe clear clear Final [facility] L ab (Internal) : [address] ? ? UR ? UA-spec 1.010 1.003-1.035 Final Nor th Grav [facility] L ab (Internal) : [address] t ? ? UR ? UA-pH 6.0 [pH] 4.6-8.0 Final [place] [pH] [facility] L ab (Internal) : [address] t ? ? UR ? UA-leuk negative negative Final Nort h [facility] L ab (Internal) : [address] t ? ? UR ? UA-nitr negative negative Final Nort h ite [facility] L ab (Internal) : [address] t ? ? UR ? UA-prot negative negative Final Nort h [facility] L ab (Internal) : [address] t ? ? UR ? UA-gluc negative negative Final Nort h [facility] ab (Internal) : [address] t ? ? UR ? UA-keto negative negative Final Nort h [facility] L ab (Internal) : [address] t ? ? UR ? UA-urob normal normal Final [facility] L ab (Internal) : [address] t ? ? UR ? UA-bili negative negative Final Nort h [facility] L ab (Internal) : [address] t ? ? UR ABNORM UA-bloo small negative Final [place] d [facility] L ab (Internal) : [address] 06/13/2017 Lipase, S ? Lip 70 U/L 23-300 U/L Final N orth Serum or [facility] Plasma Hospital L ab (Internal) : [address] 06/13/2017 CMP, S ? g/r 85 mg/dL 74-106 Final Nort h Serum or mg/dL [facility] L ab (Internal) : [address] ? ? S ? Bun 14 mg/dL 7-17 mg/dL Final Nort [facility] L ab (Internal) : [address] ? ? S ? Crea 0.70 mg/dL 0.52-1.04 Final Nor th mg/dL [facility] L ab (Internal) : [address] ? ? S ? Ca 9.5 mg/dL 8.4-10.2 Final [place] mg/dL [facility] L ab (Internal) : [address] ? ? S Low Na 136 mmol/L 137-145 Final [place] mmol/L [facility] Hospital L ab (Internal) : [address] ? ? S ? K 3.6 mmol/L 3.5-5.1 Final [place] mmol/L [facility] Hospital L ab (Internal) : [address] ? ? S ? Cl 101 mmol/L 98-107 Final [place] mmol/L [facility] L ab (Internal) : [address] ? ? S ? Tco2 26.0 mmol/L 22.0-30.0 Final No rth mmol/L [facility] L ab (Internal) : [address] ? ? S ? Tp 7.9 g/dL 6.3-8.2 Final [place] g/dL [facility] L ab (Internal) : [address] ? ? S ? Alb 4.3 g/dL 3.5-5.0 Final [place] g/dL [facility] Hospital L ab (Internal) : [address] ? ? S ? Tbil 0.7 mg/dL 0.2-1.3 Final [place] mg/dL [facility] Hospital L ab (Internal) : [address] ? ? S ? Alp 123 U/L 50-136 U/L Final [facility] Hospital L ab (Internal) : [address] ? ? S ? Alt 20 U/L 9-52 U/L Final [place] (Sgpt) [facility] Hospital L ab (Internal) : [address] ? ? S ? Ast 28 U/L 14-36 U/L Final [place] (Sgot) [facility] Hospital L ab (Internal) : [address] 06/13/2017 CBC W/ BLD ? Wbc 9.2 10*3/uL 5.0-10.0 Final [place] Auto Diff 10*3/uL [facility] Hospital L ab (Internal) : [address] ? ? BLD ? Rbc 4.50 10*6/uL 4.10-5.30 Final N orth 10*6/uL [facility] Hospital L ab (Internal) : [address] ? ? BLD ? Hgb 12.3 g/dL 12.0-16.0 Final Nort h g/dL [facility] Hospital L ab (Internal) : [address] ? ? BLD ? Hct 37.0 % 37.0-47.0 % Final [facility] L ab (Internal) : [address] ? ? BLD ? Mcv 82.2 fL 80.0-96.0 Final [facility] Hospital L ab (Internal) : [address] ? ? BLD ? Mch 27.3 pg 26.0-32.0 Final [facility] Hospital L ab (Internal) : [address] ? ? BLD ? Mchc 33.2 g/dL 31.0-35.0 Final Nort h g/dL [facility] Hospital L ab (Internal) : [address] ? ? BLD ? Rdw 14.4 % 11.5-14.5 % Final [facility] L ab (Internal) : [address] ? ? BLD ? Plt 242 10*3/uL 130-450 Final Nort h 10*3/uL [facility] Hospital L ab (Internal) : [address] ? ? BLD ? Anc 5.98 10*3/uL ? Final Nort h [facility] Hospital L ab (Internal) : [address] ? ? BLD ? Neutro 65.3 % 40.0-75.0 % Final Nort h [facility] Hospital L ab (Internal) : [address] [address] t ? ? BLD ? Lymph 25.7 % 20.0-50.0 % Final [facility] (Internal) : [address] t ? ? BLD ? [place] 6.2 % 2.0-10.0 % Final [facility] L [facility] (Internal) : [address] t ? ? BLD ? Eos 1.9 % 1.0-6.0 % Final [facility] L [facility] (Internal) : [address] t ? ? BLD ? Baso 0.5 % 0.0-1.0 % Final [facility] (Internal) : [address] t ? ? BLD ? Ig 0.4 % 0.0-0.9 % Final [facility] (Internal) : [address] t 05/30/2017 Culture, UR ? Final microbiology ? Final [place] Urine results [facility] L ab (Internal) : [address] 02/23/2017 Venipunct BLD ? Venpn* ? ? Final No rth ure [facility] L ab (Internal) : [address] t 02/23/2017 BMP, S High g/r 141 mg/dL 74-106 Final Nor th Serum or mg/dL [facility] L ab (Internal) : [address] t ? ? S ? Bun 12 mg/dL 7-17 mg/dL Final Nort h [facility] L ab (Internal) : [address] t ? ? S ? Crea 0.60 mg/dL 0.52-1.04 Final Nor th mg/dL [facility] L ab (Internal) : [address] t ? ? S ? Ca 8.8 mg/dL 8.4-10.2 Final [place] mg/dL [facility] L ab (Internal) : [address] t ? ? S ? Na 139 mmol/L 137-145 Final [place] mmol/L [facility] L ab (Internal) : [address] t ? ? S ? K 3.7 mmol/L 3.5-5.1 Final [place] mmol/L [facility] L ab (Internal) : [address] t ? ? S ? Cl 103 mmol/L 98-107 Final [place] mmol/L [facility] L [facility] (Internal) : [address] ? ? S ? Tco2 22.0 mmol/L 22.0-30.0 Final No rth mmol/L [facility] L ab (Internal) : [address] 02/23/2017 CBC W/ BLD ? Wbc 5.2 10*3/uL 5.0-10.0 Final [place] Auto Diff 10*3/uL [facility] L ab (Internal) : [address] ? ? BLD ? Rbc 4.41 10*6/uL 4.10-5.30 Final N orth 10*6/uL [facility] L ab (Internal) : [address] ? ? BLD ? Hgb 12.2 g/dL 12.0-16.0 Final Nort h g/dL [facility] L ab (Internal) : [address] ? ? BLD ? Hct 37.1 % 37.0-47.0 % Final [facility] L ab (Internal) : [address] ? ? BLD ? Mcv 84.1 fL 80.0-96.0 Final [facility] L ab (Internal) : [address] ? ? BLD ? Mch 27.7 pg 26.0-32.0 Final [facility] L ab (Internal) : [address] ? ? BLD ? Mchc 32.9 g/dL 31.0-35.0 Final Nort h g/dL [facility] L ab (Internal) : [address] t ? ? BLD High Rdw 14.7 % 11.5-14.5 % Final [facility] L ab (Internal) : [address] ? ? BLD ? Plt 203 10*3/uL 130-450 Final Nort h 10*3/uL [facility] L ab (Internal) : [address] ? ? BLD ? Anc 3.01 10*3/uL ? Final Nort [facility] L ab (Internal) : [address] ? ? BLD ? Neutro 58.3 % 40.0-75.0 % Final Nort [facility] (Internal) : [address] ? ? BLD ? Lymph 28.5 % 20.0-50.0 % Final [facility] L ab (Internal) : [address] ? ? BLD ? [place] 7.9 % 2.0-10.0 % Final [facility] L ab (Internal) : [address] ? ? BLD ? Eos 4.3 % 1.0-6.0 % Final [facility] L ab (Internal) : [address] ? ? BLD ? Baso 0.8 % 0.0-1.0 % Final [facility] L ab (Internal) : [address] ? ? BLD ? Ig 0.2 % 0.0-0.9 % Final [facility] L ab (Internal) : [address] t 02/01/2017 Venipunct BLD ? Venpn* ? ? Final No rth ure [facility] L ab (Internal) : [address] t 02/01/2017 RBC BLD ? Aniso occasional ? Final No rth [facility] (Internal) : [address] t 02/01/2017 Lipase, S ? Lip 67 U/L 23-300 U/L Final N orth Serum or [facility] L ab (Internal) : [address] t 02/01/2017 CMP, S ? g/r 76 mg/dL 74-106 Final Nort h Serum or mg/dL [facility] L ab (Internal) : [address] t ? ? S ? Bun 11 mg/dL 7-17 mg/dL Final Nort h [facility] L ab (Internal) : [address] t ? ? S ? Crea 0.70 mg/dL 0.52-1.04 Final Nor th mg/dL [facility] L ab (Internal) : [address] t ? ? S ? Ca 8.8 mg/dL 8.4-10.2 Final [place] mg/dL [facility] L ab (Internal) : [address] t ? ? S ? Na 138 mmol/L 137-145 Final [place] mmol/L [facility] L ab (Internal) : [address] t ? ? S ? K 4.0 mmol/L 3.5-5.1 Final [place] mmol/L [facility] L ab (Internal) : [address] t ? ? S ? Cl 103 mmol/L 98-107 Final [place] mmol/L [facility] L ab (Internal) : [address] t ? ? S ? Tco2 27.0 mmol/L 22.0-30.0 Final No rth mmol/L [facility] L ab (Internal) : [address] t ? ? S ? Tp 8.1 g/dL 6.3-8.2 Final [place] g/dL [facility] L ab (Internal) : [address] t ? ? S ? Alb 4.2 g/dL 3.5-5.0 Final [place] g/dL [facility] L ab (Internal) : [address] t ? ? S ? Tbil 0.5 mg/dL 0.2-1.3 Final [place] mg/dL [facility] L ab (Internal) : [address] t ? ? S High Alp 139 U/L 50-136 U/L Final [facility] L ab (Internal) : [address] ? ? S ? Alt 34 U/L 9-52 U/L Final [place] (Sgpt) [facility] L ab (Internal) : [address] t ? ? S ? Ast 23 U/L 14-36 U/L Final [place] (Sgot) [facility] L ab (Internal) : [address] t 02/01/2017 CBC W/ BLD ? Wbc 5.0 10*3/uL 5.0-10.0 Final [place] Auto Diff 10*3/uL [facility] L ab (Internal) : [address] t ? ? BLD ? Rbc 4.46 10*6/uL 4.10-5.30 Final N orth 10*6/uL [facility] L ab (Internal) : [address] ? ? BLD ? Hgb 12.4 g/dL 12.0-16.0 Final Nort h g/dL [facility] L ab (Internal) : [address] [place] ? ? BLD ? Hct 37.8 % 37.0-47.0 % Final [facility] L ab (Internal) : [address] [place] ? ? BLD ? Mcv 84.8 fL 80.0-96.0 Final [facility] L ab (Internal) : [address] [place] ? ? BLD ? Mch 27.8 pg 26.0-32.0 Final [facility] L ab (Internal) : [address] [place] ? ? BLD ? Mchc 32.8 g/dL 31.0-35.0 Final [facility] g/dL [facility] L ab (Internal) : [address] [place] ? ? BLD High Rdw 15.1 % 11.5-14.5 % Final [facility] ab (Internal) : [address] ? ? BLD ? Plt 244 10*3/uL 130-450 Final Nort h 10*3/uL [facility] L ab (Internal) : [address] [place] ? ? BLD ? Anc 2.96 10*3/uL ? Final [facility] L ab (Internal) : [address] [place] ? ? BLD ? Neutro 59.3 % 40.0-75.0 % Final [facility] L ab (Internal) : [address] [place] ? ? BLD ? Lymph 30.9 % 20.0-50.0 % Final [facility] L ab (Internal) : [address] [place] ? ? BLD ? [place] 7.0 % 2.0-10.0 % Final [facility] L ab (Internal) : [address] [place] ? ? BLD ? Eos 2.0 % 1.0-6.0 % Final [facility] (Internal) : [address] [place] ? ? BLD ? Baso 0.6 % 0.0-1.0 % Final [facility] L ab (Internal) : [address] ? ? BLD ? Ig 0.2 % 0.0-0.9 % Final [facility] L ab (Internal) : [address] 02/01/2017 Culture, UR ? Final microbiology ? Final [place] Urine results [facility] L ab (Internal) : [address] 02/01/2017 UR ? Hcgu negative negative Final [facility] L ab (Internal) : [address] 02/01/2017 Urinalysi UR ABNORM UA-WBC 10-25 [hpf] 0-3 [hpf] F inal [place], [place] [facility] (Internal) : [address] t ? ? UR ABNORM UA-RBC 5-10 [hpf] 0-2 [hpf] Final No rth AL [facility] L ab (Internal) : [address] t ? ? UR ABNORM UA-bact moderate none seen Final Nor th [place] eria [hpf] [hpf] [facility] L ab (Internal) : [address] ? ? UR ABNORM UA-epit moderate none seen Final [place] th [place] helial [hpf] [hpf] [facility] ab (Internal) : [address] t ? ? UR ABNORM UA-mucu moderate none seen Final Nor th [place] s [hpf] [hpf] [facility] L ab (Internal) : [address] 02/01/2017 Urinalysi UR ? UA-colo yellow pale yellow Fin al [place], r [facility] Dipstick, Hospita l Lab Reflex (Internal) : Micro [address] t ? ? UR ABNORM UA-appe hazy clear Final [facility] L ab (Internal) : [address] t ? ? UR ? UA-spec >=1.030 1.003-1.035 Final No rth Grav [facility] L ab (Internal) : [address] t ? ? UR ? UA-pH 6.0 [pH] 4.6-8.0 Final [place] [pH] [facility] L ab (Internal) : [address] t ? ? UR ABNORM UA-leuk small negative Final [place] Est [facility] L ab (Internal) : [address] t ? ? UR ? UA-nitr negative negative Final Nort h ite [facility] L ab (Internal) : [address] t ? ? UR ? UA-prot negative negative Final Nort h [facility] L ab (Internal) : [address] ? ? UR ? UA-gluc negative negative Final Nort [facility] L ab (Internal) : [address] ? ? UR ? UA-keto negative negative Final Nort h [facility] L ab (Internal) : [address] t ? ? UR ? UA-urob normal normal Final [facility] L ab (Internal) : [address] ? ? UR ? [facility]-bili negative negative [facility] [address] ? ? UR ABNORM UA-bloo small negative Final [facility] L ab (Internal) : [address] t 01/24/2017 T3, Free, S ? T3, 2.9 pg/mL 2.3-4.2 Final [place] Serum or Free pg/mL [facility] Hospital L ab (Internal) : [address] 01/24/2017 T4, Free, S ? Ft4 0.92 NG/dL 0.78-2.[address] [facility] Serum NG/dL [facility] L ab (Internal) : [address] 01/24/2017 CBC W/ BLD ? Wbc 5.1 10*3/uL 5.0-10.0 Final [place] Auto Diff 10*3/uL [facility] Hospital L ab (Internal) : [address] t ? ? BLD ? Rbc 4.55 10*6/uL 4.10-5.30 Final N orth 10*6/uL [facility] L ab (Internal) : [address] ? ? BLD ? Hgb 12.5 g/dL 12.0-16.0 Final Nort h g/dL [facility] L ab (Internal) : [address] ? ? BLD ? Hct 38.0 % 37.0-47.0 % Final [facility] L ab (Internal) : [address] ? ? BLD ? Mcv 83.5 fL 80.0-96.0 Final [facility] L ab (Internal) : [address] ? ? BLD ? Mch 27.5 pg 26.0-32.0 Final [facility] L ab (Internal) : [address] ? ? BLD ? Mchc 32.9 g/dL 31.0-35.0 Final [facility] g/dL [facility] L ab (Internal) : [address] ? ? BLD High Rdw 15.0 % 11.5-14.5 % Final [facility] L ab (Internal) : [address] ? ? BLD ? Plt 235 10*3/uL 130-450 [facility] L ab (Internal) : [address] ? ? BLD ? Anc 2.91 10*3/uL ? Final [facility] L ab (Internal) : [address] ? ? BLD ? Neutro 57.3 % 40.0-75.0 % Final [facility] L ab (Internal) : [address] ? ? BLD ? Lymph 30.4 % 20.0-50.0 % Final [facility] L ab (Internal) : [address] ? ? BLD ? [place] 8.5 % 2.0-10.0 % Final [facility] L ab (Internal) : [address] ? ? BLD ? Eos 2.6 % 1.0-6.0 % Final [facility] L ab (Internal) : [address] ? ? BLD ? Baso 0.8 % 0.0-1.0 % Final [facility] L ab (Internal) : [address] ? ? BLD ? Ig 0.4 % 0.0-0.9 % Final [facility] L ab (Internal) : [address] 01/24/2017 TSH, S ? Tsh 0.60 0.47-4.68 Final [facility] Serum or u[IU]/mL u[IU]/mL [facility] L ab (Internal) : [address] ? Venipunct ? Locatio Right ? ? P_nc Primary ure n Antecubital Care [place]l [place]a ns: [address], [place] ? ? ? Needle 23g ? ? P_nc Prim darlene Butterfly Care [place]l [place] ns: [address], [place] ? ? ? Number 1 ? ? P_nc Prim darlene of Care Attempts [place] rlea ns: [address], [place] ? ? ? Success Yes ? ? P_nc Yamileth kedar daniel Care [place]l [place] ns: [address], [place] ? ? ? Dressin Pressure ? ? P_nc P rimary g Band-aid Care Applied [place] keith ns: [address], [place] ? ? ? Initial hj ? ? P_nc Yamileth kedar zaidi Care [place]l [place] ns: [address], [place] ? Venipunct ? Locatio Right Hand ? ? P _nc Primary ure n Care [place]l [place] ns: [address], [place] ? ? ? Needle 23g ? ? P_nc Prim darlene Butterfly Care [place] ns: [address], [place] ? ? ? Number 1 ? ? P_nc Prim darlene of Care Attempts [place] rlea ns: [address], [place] ? ? ? Success Yes ? ? P_nc Yamileth kedar daniel Care [place] ns: [address], [place] ? ? ? Dressin Pressure ? ? P_nc P rimary g Band-aid Care Applied [place] ns: [address], [place] ? ? ? Initial hj ? ? P_nc Yamileth kedar s Care [place]l [place] ns: [address], [place] ? Venipunct ? Locatio Left Hand ? ? P_ nc Primary ure n Care [place]l [place] ns: [address], [place] ? ? ? Needle 23g ? ? P_nc Prim darlene Butterfly Care [place] ns: [address], [place] ? ? ? Number 1 ? ? P_nc Prim darlene of Care Attempts [place] rlea ns: [address], [place] ? ? ? Success Yes ? ? P_nc Yamileth kedar daniel Care [place]l [place] ns: [address], [place] ? ? ? Dressin Pressure ? ? P_nc P rimary g Band-aid Care Applied [place] ns: [address], [place] ? ? ? Initial hj ? ? P_nc Yamileth kedar s Care [place]l [place] ns: [address], [place] ? Urinalysi ? Color Yellow ? ? P_nc Pr imary s, Care Dipstick, [place]/ Or[place] Reflex ns: [address], [place] ? ? ? Appeara Clear ? ? P_nc Yamileth kedar nce Care [place]l [place] ns: [address], [place] ? ? ? Glucose Normal ? ? P_nc Yamileth kedar Care [place]l [place] ns: [address], [place] ? ? ? Bilirub Negative ? ? P_nc P rimary in Care [place]l [place] ns: [address], [place] ? ? ? Ketones Negative ? ? P_nc P rimary Care [place]l [place] ns: [address], [place] ? ? ? Specifi 1.020 ? ? P_nc Yamileth kedar burden Care Fifty Six [place] keith ns: [address], [place] ? ? ? Blood Negative ? ? P_nc Yamileth kedar Care [place]l [place] ns: [address], [place] ? ? ? Ph 8.0 ? ? P_nc Prima ry Care [place]l [place] ns: [address], [place] ? ? ? Protein Negative ? ? P_nc P rimary Care [place]l e[place] ns: [address], [place] ? ? ? Urobili 2 ? ? P_nc Yamileth kedar nogrosalba Care [place]l e[place] ns: [address], [place] ? ? ? Nitrite negative ? ? P_nc P rimary Care [place]l [place] ns: [address], [place] ? ? ? Leukocy Negative ? ? P_nc P rimary te Care Esterase [place]/O rlea ns: [address], [place] ? Venipunct ? Locatio Right ? ? P_nc Primary ure n Antecubital Care [place]l [place] ns: [address], [place] ? ? ? Needle 23g ? ? P_nc Prim darlene Butterfly Care [place] ns: [address], [place] ? ? ? Number 1 ? ? P_nc Prim darlene of Care Attempts [place] rlea ns: [address], [place] ? ? ? Success Yes ? ? P_nc Yamileth kedar daniel Care [place]l [place] ns: [address], [place] ? ? ? Dressin Pressure ? ? P_nc P rimary g Band-aid Care Applied [place] keith ns: [address], [place] ? ? ? Initial kblanchardlp ? ? P_ nc Primary s n Care [place]l e[place] ns: [address], [place] ? Venipunct ? Locatio Right ? ? P_nc Primary ure n Antecubital Care [place]l e[place] ns: [address], [place] ? ? ? Needle 21g ? ? P_nc Prim darlene Vacutainer Care [place] ns: [address], [place] ? ? ? Number 1 ? ? P_nc Prim darlene of Care Attempts [place] rlea ns: [address], [place] ? ? ? Success Yes ? ? P_nc Yamileth kedar daniel Care [place] ns: [address], [place] ? ? ? Dressin Pressure ? ? P_nc P rimary g Band-aid Care Applied [place] keith ns: [address], [place] ? ? ? Initial kk ? ? P_nc Yamileth kedar s Care [place]l [place] ns: [address], [place] Past Encounters 06/29/2021 Swelling of Ankle Joint; Flushing; Anest hesia of Skin Ciara Jaffe, GEAR MACHINIST: [address] [facility] [place] [address], Ph. 03/09/2021 Edema; Overweight; Ankle Pain; Onychomyc osis of Toenails Adam Miramontes, DO: [address] [facility] [place] [address], Ph. 10/18/2020 Iron Deficiency Ciara Jaffe, GEAR MACHINIST: [address] [facility] [place] [address], Ph. 09/28/2020 Acute Frontal Sinusitis; Costal Chondrit is Ciara Jaffe, GEAR MACHINIST: [address], [place] [address], Ph. 08/15/2020 Viral Upper Respiratory Tract Infection Adam Miramontes, DO: [address], [place] [address], Ph. 07/20/2020 Gastroesophageal Reflux Disease; Iron De ficiency Anemia Adam Miramontes, DO: [address], [place] [address], Ph. 06/30/2020 Gastroesophageal Reflux Disease; Overwei ght; Lack of Energy Adam Miramontes DO: [address], [place] [address], Ph. 06/24/2020 Allergic Rhinitis; Benign Paroxysmal Pos itional Vertigo Ciara Jaffe, GEAR MACHINIST: [address], [place] [address], Ph. 06/16/2020 Gastroesophageal Reflux Disease; Fatigue ; Anemia; Generalized Anxiety Disorder Adam Miramontes DO: [address], [place] [address], Ph. 06/10/2020 Postoperative Visit Janeth Drake MD: [address] [place] [phone], Ph. 06/02/2020 Gastroesophageal Reflux Disease; General ized Anxiety Disorder; Screening Mammography; Pain of Left Shoulder Joint; Overweight Adam Miramontes DO: [address], [place] [address], Ph. 05/12/2020 Duodenitis; Tachycardia Adam Miramontes DO: [address], [place] [address], Ph. 05/03/2020 Gastroesophageal Reflux Disease; Tachyca rdia Adam Miramontes DO: [address], [place] [address], Ph. 04/20/2020 Dysmenorrhea; Uterine Prolapse; Pre-surg leo Evaluation Janeth Drake MD: [address] [place] [address], Ph. 04/07/2020 Allergic Rhinitis Adam Zaidi Miramontes, DO: [address], [place] [address], Ph. 03/30/2020 Allergic Rhinitis Ciara Jaffe, GEAR MACHINIST: [address], [place] [address], Ph. 01/27/2020 Gastroesophageal Reflux Disease; Chest W all Pain Adam Zaidi Cash, DO: [address], [place] [address], Ph. 01/13/2020 Influenza-like Illness Ciara Jaffe, GEAR MACHINIST: [address], [place] [address], Ph. Social History Tobacco Smoking Status Never Smoker Vaccine List Vaccine Type Tdap 11/11/2012 Notes: states she had her Covid vaccine Plan of Care Reminders Provider Appointments None ? ? recorded. Lab None ? ? recorded. Referral None ? ? recorded. Procedures None ? ? recorded. Surgeries None ? ? recorded. Imaging None ? ? recorded. Vitals 06/29/2021 11:20AM Same Day 20 Height Weight BMI Blood Pressure 170.18 cm 93.89 kg 32.4 kg/m2 120/78 mm[Hg] 03/09/2021 11:00AM Follow Up 20 Height Weight BMI Blood Pressure 170.18 cm 95.25 kg 32.9 kg/m2 110/84 mm[Hg] 09/28/2020 03:00PM Acute 20 Height Weight BMI Blood Pressure 170.18 cm 89.36 kg 30.9 kg/m2 114/86 mm[Hg] 08/15/2020 09:20AM Acute 20 Height Weight BMI Blood Pressure 170.18 cm 87.54 kg 30.2 kg/m2 112/84 mm[Hg] 07/20/2020 08:20AM Follow Up 20 Height Weight BMI Blood Pressure 170.18 cm 86.64 kg 29.9 kg/m2 122/84 mm[Hg] 06/30/2020 09:00AM Follow Up 20 Height Weight BMI Blood Pressure 170.18 cm 85.28 kg 29.4 kg/m2 130/78 mm[Hg] 06/24/2020 03:40PM Same Day 20 Height Weight BMI Blood Pressure 170.18 cm 86.64 kg 29.9 kg/m2 106/72 mm[Hg] 06/16/2020 11:00AM Follow Up 20 Height Weight BMI Blood Pressure 170.18 cm 85.73 kg 29.6 kg/m2 130/84 mm[Hg] 06/10/2020 02:10PM Post Op 20 Height Blood Pressure 170.18 cm 110/68 mm[Hg] 06/02/2020 03:00PM Follow Up 20 Height Weight BMI Blood Pressure 170.18 cm 88.9 kg 30.7 kg/m2 120/80 mm[Hg] 05/12/2020 10:40AM Acute 20 Height Weight BMI Blood Pressure 170.18 cm 88 kg 30.4 kg/m2 126/84 mm[Hg] 05/03/2020 02:40PM Follow Up 20 Height Weight BMI Blood Pressure 170.18 cm 89.36 kg 30.9 kg/m2 138/90 mm[Hg] 04/20/2020 02:10PM Preop Clearance 20 Height Weight BMI Blood Pressure 170.18 cm 92.99 kg 32.1 kg/m2 128/78 mm[Hg] 03/30/2020 02:40PM Acute 20 Height Weight BMI 170.18 cm 87.09 kg 30.1 kg/m2 01/27/2020 03:00PM Acute 20 Height Weight BMI Blood Pressure 170.18 cm 87.09 kg 30.1 kg/m2 120/78 mm[Hg] 01/13/2020 04:00PM Acute 40 Height Weight BMI Blood Pressure 170.18 cm 90.26 kg 31.2 kg/m2 124/88 mm[Hg] 12/31/2019 03:40PM Office 20 Height Weight BMI Blood Pressure 170.18 cm 90.85 kg 31.4 kg/m2 136/80 mm[Hg] 12/03/2019 03:50PM Office 30 Height Weight BMI Blood Pressure 170.18 cm 88.63 kg 30.6 kg/m2 130/76 mm[Hg] 10/21/2019 03:20PM Acute 20 Height Weight BMI Blood Pressure 170.18 cm 89.81 kg 31 kg/m2 126/88 mm[Hg] 08/10/2019 03:50PM Office 30 Height Weight BMI Blood Pressure 170.18 cm 88.09 kg 30.4 kg/m2 112/70 mm[Hg] 06/25/2019 09:20AM Follow Up 20 Height Weight BMI Blood Pressure 170.18 cm 86.18 kg 29.8 kg/m2 120/82 mm[Hg] 06/16/2019 01:00PM Acute 20 Height Weight BMI Blood Pressure 170.18 cm 86.64 kg 29.9 kg/m2 120/80 mm[Hg] 04/30/2019 02:00PM New Patient 30 Height Weight BMI Blood Pressure 170.18 cm 83.91 kg 29 kg/m2 108/68 mm[Hg] 02/19/2019 03:40PM Follow Up 20 Height Weight BMI Blood Pressure 170.18 cm 83.01 kg 28.7 kg/m2 120/84 mm[Hg] 02/16/2019 09:20AM Acute 20 Height Weight BMI Blood Pressure 170.18 cm 80.74 kg 27.9 kg/m2 114/86 mm[Hg] 01/28/2019 12:30PM Office 15 Height 170.18 cm 12/22/2018 03:15PM Office 15 Height Blood Pressure 170.18 cm 128/78 mm[Hg] 12/05/2018 10:00AM Follow Up 20 Height Weight BMI Blood Pressure 170.18 cm 82.1 kg 28.3 kg/m2 120/80 mm[Hg] 11/26/2018 09:20AM Acute 20 Height Weight BMI Blood Pressure 170.18 cm 81.65 kg 28.2 kg/m2 118/84 mm[Hg] 10/02/2017 Weight Blood Pressure 87.54 kg 120/78 mm[Hg] 05/30/2017 Height Weight Blood Pressure 170.18 cm 86.18 kg 110/70 mm[Hg] 01/24/2017 Weight Blood Pressure 83.01 kg 120/80 mm[Hg] 11/23/2016 Height Weight Blood Pressure 170.18 cm 83.91 kg 114/76 mm[Hg] 07/05/2016 Height Weight Blood Pressure 170.18 cm 88.9 kg 118/85 mm[Hg] 07/03/2016 Height Weight Blood Pressure 170.18 cm 89.81 kg 102/84 mm[Hg] 05/29/2016 Weight Blood Pressure 89.81 kg 120/78 mm[Hg] 05/22/2016 Height Weight Blood Pressure 170.18 cm 88.45 kg 110/80 mm[Hg] 12/26/2015 Height Blood Pressure 170.18 cm 132/88 mm[Hg] 09/13/2015 Height Weight Blood Pressure 170.18 cm 84.82 kg 120/78 mm[Hg] 07/21/2015 Height Weight Blood Pressure 170.18 cm 85.28 kg 134/88 mm[Hg] 06/15/2015 Height Weight Blood Pressure 170.18 cm 82.55 kg 132/92 mm[Hg] 05/19/2015 Height Weight Blood Pressure 170.18 cm 82.55 kg 132/76 mm[Hg] 01/25/2015 Height Weight Blood Pressure 170.18 cm 78.02 kg 112/64 mm[Hg] 12/29/2014 Weight Blood Pressure 77.11 kg 108/84 mm[Hg] 12/08/2014 Weight Blood Pressure 79.38 kg 122/88 mm[Hg]
--- NOTE | 2021-07-10 09:55 | ED.GENADUL_ITS ---
Discharge Plan Disposition Patient Disposition: HOME Condition: Stable Discharge Details Clinical Impression: Chronic GERD, Chest pain Primary Care Provider: Faustino Castrejon ED Provider: Aurora Richardson Home Meds and New Rx's Prescriptions: Continued cyclobenzaprine 5 mg tablet 5 mg PO QHS PRN (Reason: neck tension) Qty: 30 RF: 5 magnesium 200 mg tablet 250 mg PO DAILY RF: 0 multivitamin with iron Tablet 1 tab PO DAILY RF: 0 pantoprazole 40 mg tablet,delayed release (DR/EC) 40 mg PO BID RF: 0 citalopram 20 mg tablet 20 mg PO DAILY RF: 0 cetirizine 10 mg tablet 10 mg PO DAILY PRNRF: 0 ondansetron HCl 4 mg tablet 4 mg PO .Q4 HR PRNRF: 0 ibuprofen 600 mg tablet 600 mg PO TID PRNRF: 0 Discharge Instructions Instructions: Chest Pain (ED), Gastritis (ED), Diet for Stomach Ulcers and Gastritis (ED), GERD (Gastroesophageal Reflux Disease) (ED) Additional Instructions: Please return immediately to the emergency department if you develop any new or worsening symptoms, if your condition does not improve as expected, or if you become otherwise concerned. It is extremely important that you call soon as possible to make an appointment to be seen in follow-up for this visit by your primary care doctor and your nutrition assistant. Referrals: Faustino Castrejon [Primary Care Provider] - Discharge Data Discharge Date/Time-TO BE ENTERED AT DEPARTURE: 07/10/21 16:01 Medical Decision Making Miriam Rick is a 41 y/o woman with h/o GERD, hypothyroidism who presented to the emergency department with worsening throat pain, chest pain. On exam Pt is very well and non-toxic appearing. Normal exam of the oropharynx. Handling secretions without issue. No chest TTP. Benign abd exam. Concern for likely worsening GERD, esophagitis, gastritis, other. Doubt pulmonary embolism, acute coronary syndrom e. Exam/hx at this time not c/w acute emergent intra-abdominal pathology, acute aortic etiology, impending airway compromise, lis-tonsilar abscess, epiglottitis, retropharyngeal abscess, ludwigs angina. EKG obtained and non- diagnostic. Plan for IV placement, IV fluid hydration, screening labs, CXR pending d-dimer result, telemetry. Will monitor and reassess, plan for repeat trop and EKG if initial work up negative. D-dimer normal. Trop neg. No leukocytosis. Trace ketones in UA. I had further discussion with the Pt, in which she reported that she drinks a significant amount of carbonated beverages, and has not been limiting acidic foods. This is likely the cause of worsening GERD depsite meds. Plan for GI cocktail. Pt reports signficant improvement in symptoms after medications, pain free at this time. Work-up non-diagnostic. Plan for outpt EGD and outpt f/u. I had a lengthy dicussion with the Pt re: food choices for GERD/gastritis. I had a lengthy discussion with Patient regarding return to emergency department precautions, home care, and importance of outpatient follow-up. Pt verbalizes understanding of the plan and is amenable. Patient discharged to home with clear plan for outpatient follow-up. All questions were answered. Disposition decision was made weighing the risks and benefits of hospitalization versus outpatient treatment, the risk for further decompensation, and the patient's wishes. Medical Records Medical records reviewed: Yes I reviewed the patient's medical records. Imaging Data Radiologic Study: Attestation: I personally reviewed and interpreted this imaging study as follows: Radiologist's impression: EXAM: XR CHEST 2V PA LATERAL CLINICAL HISTORY: chest pain TECHNIQUE: 2D digital imaging was performed. COMPARISON: No exams were available for comparison FINDINGS: MEDIASTINUM: Normal. HEART: Normal. PULMONARY VASCULATURE: Normal. LUNGS: Clear. PLEURAL SPACE: No pleural effusion or pneumothorax. BONE:Within normal limits for the patient's age. OTHER FINDINGS:Normal. IMPRESSION: No acute pulmonary findings. Lab Data Lab results reviewed: Yes I reviewed the patient's lab results. Labs: Laboratory Tests Range/Units 07/10/21 07/10/21 07/10/21 10:50 11:00 11:00 WBC (4.4-10.8) 10^3/uL 6.52 RBC (3.93-5.22) 10^6/uL 4.80 Hgb (11.2-15.7) g/dL 13.1 Hct (36.0-46.0) % 41.0 MCV (80-95) fL 85.4 MCH (27.0-33.0) pg 27.3 MCHC (32.0-36.0) % 32.0 RDW (11.7-14.6) % 13.4 Plt Count (130-400) 10^3/uL 282 MPV (8.0-11.0) fL 9.6 Immature Gran % 0.5 Neutrophils % 71.8 Lymphocytes % 19.6 Monocytes % 6.6 Eosinophils % 0.9 Basophils % 0.6 Nucleated RBC % % 0 Absolute Neutrophils (1.2-6.7) 10^3/uL 4.68 Absolute Lymphocytes (1.2-3.4) 10^3/uL 1.28 Absolute Monocytes (0.1-0.8) 10^3/uL 0.43 Absolute Eosinophils (0.0-0.7) 10^3/uL 0.06 Absolute Basophils (0.0-0.2) 10^3/uL 0.04 D-Dimer (<500) ng/mlFEU Sodium (136-145) mmol/L 139 Potassium (3.5-5.1) mmol/L 3.8 Chloride (98-107) mmol/L 105 Carbon Dioxide (21.0-32.0) mmol/L 26.0 Anion Gap (3-11) mmol/L 8.0 BUN (7-18) mg/dL 14 Creatinine (0.55-1.02) mg/dL 0.8 Estimated GFR/1.73 m2 (mL/min/1.73m2) >= 60.00 Glucose (74-106) mg/dL 93 Calcium (8.5-10.1) mg/dL 8.9 Total Bilirubin (0.2-1.0) mg/dL 0.4 AST (15-37) U/L 17 ALT (14-59) U/L 25 Alkaline Phosphatase (46-116) U/L 119 H Troponin I (<0.06) ng/mL < 0.05 Total Protein (6.4-8.2) g/dL 8.0 Albumin (3.4-5.0) g/dL 3.8 Lipase (73-393) U/L 93 TSH (0.36-3.74) uIU/mL 1.04 Urine Color (Yellow) Yellow Urine Clarity (Clear) Clear Urine pH (5-8) 7.0 Ur Specific [place] (1.005-1.025) 1.020 Urine Protein (Negative) mg/dL Negative Urine Ketones (Negative) mg/dL Trace H Urine Blood (Negative) Trace-intact H Urine Nitrite (Negative) Negative Urine Bilirubin (Negative) Negative Urine Urobilinogen (Up TO 0.2) EU/dL 0.2 Ur Leukocyte Esterase (Negative) Negative Urine RBC (0-2) HPF 0-2 Urine WBC (0-5) HPF Negative Ur Epithelial Cells (Negative) HPF Few Urine Crystals (Negative) HPF Negative Urine Bacteria (Negative) HPF Negative Urine Casts (Negative) LPF Negative Urine Mucus (Negative) Negative Ur Culture Indicated? No Urine Glucose (Negative) mg/dL Negative Range/Units 07/10/21 07/10/21 11:18 14:00 WBC (4.4-10.8) 10^3/uL RBC (3.93-5.22) 10^6/uL Hgb (11.2-15.7) g/dL Hct (36.0-46.0) % MCV (80-95) fL MCH (27.0-33.0) pg MCHC (32.0-36.0) % RDW (11.7-14.6) % Plt Count (130-400) 10^3/uL MPV (8.0-11.0) fL Immature Gran % Neutrophils % Lymphocytes % Monocytes % Eosinophils % Basophils % Nucleated RBC % % Absolute Neutrophils (1.2-6.7) 10^3/uL Absolute Lymphocytes (1.2-3.4) 10^3/uL Absolute Monocytes (0.1-0.8) 10^3/uL Absolute Eosinophils (0.0-0.7) 10^3/uL Absolute Basophils (0.0-0.2) 10^3/uL D-Dimer (<500) ng/mlFEU 467 Sodium (136-145) mmol/L Potassium (3.5-5.1) mmol/L Chloride (98-107) mmol/L Carbon Dioxide (21.0-32.0) mmol/L Anion Gap (3-11) mmol/L BUN (7-18) mg/dL Creatinine (0.55-1.02) mg/dL Estimated GFR/1.73 m2 (mL/min/1.73m2) Glucose (74-106) mg/dL Calcium (8.5-10.1) mg/dL Total Bilirubin (0.2-1.0) mg/dL AST (15-37) U/L ALT (14-59) U/L Alkaline Phosphatase (46-116) U/L Troponin I (<0.06) ng/mL < 0.05 Total Protein (6.4-8.2) g/dL Albumin (3.4-5.0) g/dL Lipase (73-393) U/L TSH (0.36-3.74) uIU/mL Urine Color (Yellow) Urine Clarity (Clear) Urine pH (5-8) Ur Specific [place] (1.005-1.025) Urine Protein (Negative) mg/dL Urine Ketones (Negative) mg/dL Urine Blood (Negative) Urine Nitrite (Negative) Urine Bilirubin (Negative) Urine Urobilinogen (Up TO 0.2) EU/dL Ur Leukocyte Esterase (Negative) Urine RBC (0-2) HPF Urine WBC (0-5) HPF Ur Epithelial Cells (Negative) HPF Urine Crystals (Negative) HPF Urine Bacteria (Negative) HPF Urine Casts (Negative) LPF Urine Mucus (Negative) Ur Culture Indicated? Urine Glucose (Negative) mg/dL ECG Data Attestation: I personally reviewed and interpreted this ECG (s) as follows: Interpretation: EKG shows sinus rhythm at 92, normal axis, no acute ischemic changes, no STEMI, nondiagnostic EKG EKG 14: 04 shows sinus rhythm at 97, normal axis, no major change from prior, no STEMI, nondiagnostic EKG HPI General Mode of arrival: ambulatory . Date/Time Provider Initiated Documentation: 07/10/21 09:55 . Limitations to Documentation: no limitations . Information obtained by: patient, RN notes reviewed and old records reviewed . HPI Narrative: Miriam Rick is a 41 y/o woman with h/o hypothyroid, GERD presenting to the emergency department with burning throat pain, chest pain. Pt reports that she has a long h/o GERD progressively worsening over time. Pt reports that she has been taking pantoprazole and is scheduled for EGD at [facility] [place] 07/21. She reports that over the past few days GERD symptoms have been worse despite medication, with worsening burning throat pain (worse with swallowing), and also with new chest discomfort. Pt reports that chest pain is sharp, located in her mid anterior chest and under left breast, worse with eating, unchanged with exertion, position. Pt reports that her PO intake has been somewhat decreased over the past few days 2/2 increased throat/chest pain with eating. Pt reports that throat pain has been present for months, waxing and waning, typically worse in the morning when she wakes up with acid taste in her mouth. She denies any other pain, SOB, vomiting, diarrhea, numbness, weakness, rash, swelling. Related Data Home Medications Medication Instructions Recorded Confirmed cetirizine 10 mg tablet 10 mg PO DAILY PRN 01/18/21 07/10/21 citalopram 20 mg tablet 20 mg PO DAILY 01/18/21 07/10/21 ibuprofen 600 mg tablet 600 mg PO TID PRN 01/18/21 07/10/21 ondansetron HCl 4 mg tablet 4 mg PO .Q4 HR PRN tab 01/18/21 07/10/21 multivitamin with iron 1 tab PO DAILY 03/02/21 07/10/21 cyclobenzaprine 5 mg tablet 5 mg PO QHS PRN #30 tab 04/13/21 07/10/21 magnesium 200 mg tablet 250 mg PO DAILY tab 06/26/21 07/10/21 pantoprazole 40 mg tablet,delayed 40 mg PO BID tab 06/26/21 07/10/21 release Previous Rx's Medication Instructions Recorded cyclobenzaprine 5 mg tablet 5 mg PO QHS PRN #30 tab 04/13/21 Allergies Allergy/AdvReac Type Severity Reaction Status Date / Time chlorhexidine Allergy Verified 07/10/21 09:38 clindamycin Allergy Verified 07/10/21 09:38 sertraline [From Zoloft] Allergy Verified 07/10/21 09:38 silver Allergy Verified 07/10/21 09:38 [From Tegaderm AG Mesh] tomato Allergy Verified 07/10/21 09:38 peanut AdvReac Intermediate Nausea Unverified 07/10/21 09:38 venlafaxine AdvReac severe Verified 07/10/21 09:38 nausea and increased vertigo General Stated Complaint: GenMedical RAPHAEL: 3 Review of Systems Narrative: Constitutional: denies fevers Eyes: denies eye pain ENT: denies ear pain, dental pain, reports sore throat Cardiovascular: denies edema, reports chest pain Respiratory: denies SOB, cough GI: denies abdominal pain, vomiting, diarrhea : denies flank pain MSK: denies back pain, neck pain, arthralgias, myalgias Skin: denies rash Neuro: denies headaches, numbness, weakness PFSH Medical History Chronic low back pain Depression GERD (gastroesophageal reflux disease) Gestational diabetes Hiatal hernia IBS (irritable bowel syndrome) Kidney stones Surgical History S/P hysterectomy S/P tubal ligation has single ovary in place Family History Other Diabetes Social History Smoking/Tobacco Use Status: Never Smoking risk assessment performed?: Yes Alcohol Intake: current Alcohol Intake frequency: holidays/special occasions only Alcohol type: wine Drug use: Never Household members: significant other, children and other Number of Children: 3 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; 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 Pets and animals: No Current gender identity: female What is your relationship status?: Panel score (0-1 are the most socially isolated patients): 0 What type of physical activity do you participate in: walking Seatbelt use: always Exam Narrative Exam Narrative: Constitutional: well and [id number], pleasant, conversing normally HENT: head atraumatic/normocephalic/normal inspection, mucous membranes moist, clear oropharynx without edema, erythema, or lesion, no exudate, uvula midline, normal voice, no drooling, no pooling of secretions Eyes: conjunctiva normal, sclera normal, pupils 3mm b/l Neck: no stridor, full painless ROM, trachea midline, normal inspection Chest: normal inspection, no TTP Resp: normal work of breathing, LCTAB Cardio: normal rate, normal rhythm, no murmur appreciated GI: abdomen soft, non-tender, non-distended Back: normal inspection, no rash Skin: warm, dry, normal color, no rash Neuro: alert, not altered, grossly non-focal, normal tone Ext: no edema, no posterior calf TTP Psych: normal mood, normal affect, normal behavior Course Vital Signs Vital signs: Vital Signs Temperature 36.2 C L 07/10/21 09:31 Pulse 99 H 07/10/21 09:31 Respiratory Rate 18 08/30/21 09:31 Blood Pressure 143/81 H 07/10/21 09:31 Pulse Oximetry 99 07/10/21 09:31 Temperature 36.2 C L 07/10/21 09:31 Temperature Source Temporal Artery Scan 07/10/21 09:31 Pulse 99 H 07/10/21 09:31 Respiratory Rate 18 07/10/21 09:31 Respiratory Effort Non-Labored 07/10/21 09:37 Blood Pressure 143/81 H 07/10/21 09:31 Blood Pressure Position Supine 07/10/21 09:31 Pulse Oximetry 99 07/10/21 09:31 Oxygen Delivery Method Room Air 07/10/21 09:31 Oxygen Flow Rate 0 07/10/21 09:31 Pain Level 9 07/10/21 09:31
[2021-07-10] MEDS: Normal Saline 1,000 ML 1000 ML IV (11:06)
[2021-07-10 11:11] LABS: Abs Immature Grans 0.03 10^3/uL (0.0-0.06); Absolute Basophil Count 0.04 10^3/uL (0.0-0.2); Absolute Eosinophil Count 0.06 10^3/uL (0.0-0.7); Absolute Lymphocyte Count 1.28 10^3/uL (1.2-3.4); Absolute Monocyte Count 0.43 10^3/uL (0.1-0.8); Absolute Neutrophil Count 4.68 10^3/uL (1.2-6.7); Basophils % 0.6; Eosinophils % 0.9; HGB 13.1 g/dL (11.2-15.7); Immature Grans % 0.5; Lymphocytes % 19.6; MCH 27.3 pg (27.0-33.0); MCV 85.4 fL (80-95); MPV 9.6 fL (8.0-11.0); Monocytes % 6.6; Neutrophils % 71.8; Nucleated RBC 0 %; Platelet Count 282 10^3/uL (130-400); RDW 13.4 % (11.7-14.6); WBC 6.52 10^3/uL (4.4-10.8)
[2021-07-10 11:18] LABS: Bilirubin Negative (Negative); Blood Trace-intact (Negative); Clarity Clear (Clear); Glucose Negative (Negative); Ketones Trace mg/dL (Negative); Leukocyte Esterase Negative (Negative); Nitrite Negative (Negative); Urobilinogen 0.2 EU/dL (Up TO 0.2)
[2021-07-10 11:28] LABS: Bacteria Negative HPF (Negative); C & S Indicated? No; Casts Negative LPF (Negative); Crystals Negative HPF (Negative); Epithelial Cells Few HPF (Negative); Mucus Negative (Negative); RBC 0-2 HPF (0-2); WBC Negative HPF (0-5)
[2021-07-10 11:35] LABS: ALT 25 U/L (14-59); AST 17 U/L (15-37); Albumin 3.8 g/dL (3.4-5.0); Alkaline Phosphatase 119 U/L (46-116); BUN 14 mg/dL (7-18); Bilirubin, Total 0.4 mg/dL (0.2-1.0); CREATININE 0.8 mg/dL (0.55-1.02); Calcium 8.9 mg/dL (8.5-10.1); Chloride 105 mmol/L (98-107); Glucose 93 mg/dL (74-106); Lipase 93 U/L (73-393); Potassium 3.8 mmol/L (3.5-5.1); Sodium 139 mmol/L (136-145); TSH (W/Ref FT4) 1.04 uIU/mL (0.36-3.74); Troponin I < 0.05 ng/mL (<0.06)
[2021-07-10 11:56] LABS: D-Dimer 467 ng/mlFEU (<500)
--- NOTE | 2021-07-10 12:15 | DI.RAD_ITS ---
Exam(s) XR CHEST 2V PA LATERAL EXAM: XR CHEST 2V PA LATERAL CLINICAL HISTORY: chest pain TECHNIQUE: 2D digital imaging was performed. COMPARISON: No exams were available for comparison FINDINGS: MEDIASTINUM: Normal. HEART: Normal. PULMONARY VASCULATURE: Normal. LUNGS: Clear. PLEURAL SPACE: No pleural effusion or pneumothorax. BONE:Within normal limits for the patient's age. OTHER FINDINGS:Normal. IMPRESSION: No acute pulmonary findings. DATA REPOSITORY: RADIATION DOSE DELIVERED:
--- NOTE | 2021-07-10 12:45 | RT.EKG_ITS ---
APPROVED REPORT Exam: Resting ECG Reason for Exam: chest pain Patient Location: E HR:97 bpm ECG Measurements Heart Rate 97 AXIS DC 161 P 51 QRSd 88 QRS 4 QT 351 T 13 QTc 446 Conclusion Sinus rhythm...normal P axis, V-rate 60- 99 Low voltage, precordial leads...precordial leads <1.0mV sinus rhythm at 97, normal axis, no major change from prior, no STEMI, nondiagnostic EKG
[2021-07-10 14:31] LABS: Troponin I < 0.05 ng/mL (<0.06)
--- NOTE | 2021-07-10 15:37 | NUR.NOTE ---
Nursing Note: referral given to care management to move EGD sooner at [facility] [place]
== END 2021-07-10 16:01 | disposition home or self-care (01) ==
PROVIDERS: Emergency Provider Student in an Organized Health Care Education/Training Program; PCP Neuromusculoskeletal Medicine & OMM
DX: K21.9 Gastro-esophageal reflux disease without esophagitis (principal); R07.9 Chest pain, unspecified
CPT/HCPCS: 36415; 80053; 81025; 83690; 93005; 96360; 99284; 71046; 81003; 81015; 84443; 84484; 85025; 85379; 93010

== ENCOUNTER 2022-05-17 04:07 | Outpatient (CLI) | payer MEDICAID, SELFPAY ==
[2022-05-17 15:09] LABS: Abs Immature Grans 0.04 10^3/uL (0.0-0.06); Absolute Basophil Count 0.03 10^3/uL (0.0-0.2); Absolute Lymphocyte Count 1.67 10^3/uL (1.2-3.4); Absolute Monocyte Count 0.54 10^3/uL (0.1-0.8); Absolute Neutrophil Count 6.32 10^3/uL (1.2-6.7); Basophils % 0.3; Eosinophils % 2.3; HCT 38.3 % (36.0-46.0); HGB 12.3 g/dL (11.2-15.7); Immature Grans % 0.5; MCH 26.8 pg (27.0-33.0); MCHC 32.1 % (32.0-36.0); MCV 83 fL (80-95); MPV 9.8 fL (8.0-11.0); Monocytes % 6.1; Neutrophils % 71.8; Platelet Count 275 10^3/uL (130-400); RBC 4.59 10^6/uL (3.93-5.22); RDW 14.1 % (11.7-14.6); RDW-SD 42.5 fL
[2022-05-17 16:22] LABS: TSH (W/Ref FT4) 1.05 uIU/mL (0.36-3.74)
[2022-05-17 22:04] LABS: Estradiol 181 pg/mL (See Note)
[2022-05-17 22:24] LABS: FSH 4.4 mIU/mL (See Note)
== END 2022-05-17 04:08 | disposition home or self-care (01) ==
LOC: LBO 04:07
PROVIDERS: PCP Neuromusculoskeletal Medicine & OMM; Visit Provider Obstetrics & Gynecology
DX: R53.83 Other fatigue (principal); D64.9 Anemia, unspecified; N92.5 Other specified irregular menstruation; N92.0 Excessive and frequent menstruation with regular cycle; N95.1 Menopausal and female climacteric states
CPT/HCPCS: 36415; 82670; 83001; 84443; 85025

== ENCOUNTER → 2024-11-17 14:46 | Outpatient (BNVA) | payer MEDICARE, MEDICAID, SELFPAY | PROVIDERS: PCP Neuromusculoskeletal Medicine & OMM; Referring Provider Neuromusculoskeletal Medicine & OMM; Visit Provider Psychiatry & Neurology Neurology | DX: G43.109 Migraine with aura, not intractable, without status migrainosus (principal); R20.0 Anesthesia of skin; R20.2 Paresthesia of skin; G90.A Postural orthostatic tachycardia syndrome [POTS]; E11.9 Type 2 diabetes mellitus without complications; I10 Essential (primary) hypertension | CPT/HCPCS: 99205 ==